=== PATIENT | male | born 1950 | race Caucasian/White ===

== ENCOUNTER 2019-08-19 11:06 | Emergency (ER) | payer MEDICARE, OTHER, SELFPAY ==
[2019-08-19 11:12] VITALS: BP 151/76; PULSE 65; RESP 18; TEMP 36.5; O2SAT 96; BMI 28.7
--- NOTE | 2019-08-19 11:20 | XR_ITS ---
WS: [id number] RIGHT ANKLE: 3 VIEW(S) TECHNIQUE: AP, oblique(s) and lateral. HISTORY: right foot pain COMPARISON: None available. Normal anatomic alignment with no fracture or dislocation. No joint effusion or widening of the ankle mortise. Mild degenerative changes between the distal tibia fibular joint space. No soft tissue abnormality. 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 No fracture.
--- NOTE | 2019-08-19 11:20 | W.ED.EXTPRO ---
HPI - Extremity Problem General: Chief complaint: Extremity Injury, Lower Stated complaint: r leg injury Time Seen by Provider: 08/19/19 11:12 History of Present Illness: HPI Narrative: Patient comes to the ED today with right foot pain. Patient states that last night he went to stand up from his recliner and he felt a sharp pain in his right foot. Location of pain is along the Achilles tendon region of right foot. Pain mostly occurs when he puts weight on foot or any movement of the ankle or foot. Patient says he was laying back in his recliner with his feet up. 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 He also said that he was standing on his toes to reach some areas to pain frequently before feeling right Achilles tendon pain. He has had this exact same pain occur in the past after laying in his recliner. He said the pain lasted for about 4 days and then went away. Associated symptoms: Deny chest pain, fever(s) or rash Review of Systems Const: Denies: fever(s), chills or fatigue Eyes: Denies: change in vision or eye discomfort ENMT: Denies: throat pain, odynophagia, nasal discharge or nasal congestion Card: Denies: chest pain, palpitations, edema, swelling of feet/ankles, dyspnea on exertion or orthopnea Resp: Denies: dyspnea, productive cough or non-productive cough GI: Denies: abdominal pain, nausea, vomiting, diarrhea, constipation or hematochezia : Denies: flank pain, difficulty urinating, dysuria or hematuria Musc: Reports: extremity pain (right ankle area (along the achilles tendon)); Denies: neck pain, back pain or extremity swelling Skin/Breast: Denies: rash or new lesions Neuro: Denies: headache(s), numbness in extremities or weakness in extremities PFS ED PFSH: Social History Smoking and tobacco status: never smoked Physical Exam Const: COMMON NORMALS: no acute distress, patient oriented x3 and alert GENERAL APPEARANCE: cooperative and comfortable HENMT: COMMON NORMALS: normocephalic HEAD & SCALP: normocephalic MOUTH: Normal oral and palatal mucosa present THROAT: posterior oropharynx normal and uvula midline Neck/C-Spine: COMMON NORMALS: supple GENERAL: Yes normal visual inspection Resp: COMMON NORMALS: normal respiratory effort, No retractions, No use of accessory muscles and clear to auscultation bilaterally EFFORT & INSPECTION: Yes able to speak in complete sentences and No respiratory distress AUSCULTATION: clear to auscultation bilaterally Cardio: COMMON NORMALS: regular rate, regular rhythm, S1 normal heart sound present, S2 normal heart sound present, No gallops present (Cardio), No clicks present (Cardio), No murmurs present (Cardio) and Peripheral pulses 2+ throughout RATE: regular rate RHYTHM: regular rhythm HEART SOUNDS: S1 normal heart sound present and S2 normal heart sound present PERIPHERAL PULSES: Peripheral pulses 2+ throughout GI: COMMON NORMALS: Normal to inspection, nondistended, normoactive bowel sounds present, Soft to palpation, non-tender and no masses PALPATION: Yes Soft to palpation : COMMON NORMALS: Yes no CVA tenderness BLADDER/KIDNEY EXAM: Yes no CVA tenderness Back/Pelvis: COMMON NORMALS: no CVA tenderness Extremity: RIGHT LOWER EXTREMITY: Yes foot & digits Right ankle: Yes inspection (Normal and unremarkable. No swelling or erythema.), Yes palpation (Mild tenderness upon palpation around the Achilles tendon.), Yes ROM (Limited due to pain.), Yes neurovascular exam (Fully intact.) and Yes special tests (Chow test negative) Neuro: COMMON NORMALS: patient oriented x3 and moves all extremities SENSORIUM/ORIENTATION: Yes alert Skin: COMMON NORMALS: no rashes or lesions noted GENERAL SKIN EXAM: no rashes or lesions noted and dry skin Course Vital Signs: Vital signs: Vital Signs Temperature 97.7 F 08/19/19 11:12 Pulse Rate 59 L 08/19/19 11:21 Respiratory Rate 18 08/19/19 11:21 Blood Pressure 151/76 08/19/19 11:12 Pulse Oximetry 96 08/19/19 11:21 MDM - Extremity (Nontraumatic) MDM Narrative: Medical decision making narrative: Patient is a 68-year-old male who comes to the ED with right Achilles tendon pain. Patient was recently up on his feet and working a lot before pain set in. Physical exam showed a negative Chow test and some mild tenderness when palpating along the right Achilles tendon. X-ray of right ankle was performed showed no acute findings or fractures. Patient was then given a shot of Toradol and his right ankle was Noe wrapped which helped provide some relief. Diagnosed with Achilles tendonitis of right foot. Patient told to rest, ice and elevate right foot. He was told to take ibuprofen help with pain and inflammation and to follow-up with his PCP in 7 days for reevaluation. Patient understood and agreed with plan. Imaging Data^: Xray Ortho: Attestation: I personally reviewed and interpreted this imaging study as follows: My impression: Right ankle x-ray. No acute findings or fractures. Pending final radiology report. Discharge Plan Discharge Patient Disposition: Home, Self-Care Clinical Impression: Achilles tendonitis Qualifiers: Laterality: right Qualified Code(s): M76.61 - Achilles tendinitis, right leg Condition: Stable Discharge Orders: Discharge Order (Routine); Ordered 08/19/19 Ordered By: Donny Stover Referrals: Obi Munguia, [Primary Care Provider] - Discharge Diet: Regular Discharge Activity: Increase activity as tolerated Patient Instructions: Achilles Tendinitis (ED) Activity Restrictions/Additional Instructions: Follow-up with your PCP in 7 to 10 days for reevaluation. Apply ice, rest and elevate. Use Noe wrap on right ankle to help with symptoms as well. Take up to 600 mg of ibuprofen 3 times a day to help with pain and inflammation. Coding Level of Care Code ED Rub[employer] Worker for Jaxon Reed Exam Comprehensive
[2019-08-19 11:21] VITALS: PULSE 59; RESP 18; O2SAT 96
[2019-08-19] MEDS: ketorolac 30 mg/mL INJ IM (11:56)
[2019-08-19 12:21] VITALS: BP 151/76; PULSE 56; RESP 16; O2SAT 97
== END 2019-08-19 12:15 | disposition home or self-care (01) ==
PROVIDERS: Emergency Provider Physician Assistant; Family Provider Family Medicine; PCP Family Medicine
DX: M76.61 Achilles tendinitis, right leg (principal)
CPT/HCPCS: 12345; 73610; 96372; 99282; 99283; J1885

== ENCOUNTER → 2019-12-23 12:00 | Outpatient (BNVA) | payer MEDICARE, OTHER, SELFPAY | PROVIDERS: Family Provider Family Medicine; PCP Family Medicine; Visit Provider Nurse Practitioner | DX: S99.921A Unspecified injury of right foot, initial encounter (principal); X58.XXXA Exposure to other specified factors, initial encounter; Z68.30 Body mass index [BMI] 30.0-30.9, adult | CPT/HCPCS: 73630 ==

== ENCOUNTER → 2019-12-27 11:53 | Outpatient (BNVA) | payer MEDICARE, OTHER, SELFPAY | PROVIDERS: Family Provider Family Medicine; PCP Family Medicine; Visit Provider Nurse Practitioner Family | DX: Z11.59 Encounter for screening for other viral diseases (principal) | CPT/HCPCS: 87635 ==

== ENCOUNTER 2020-01-03 19:27 | Emergency (ER) | payer MEDICARE, OTHER, SELFPAY ==
--- NOTE | 2020-01-03 20:08 | ED_ITS ---
HPI - COVID General: Chief Complaint: COVID symptoms Stated Complaint: covid+/SOB Time Seen by Provider: 01/03/20 20:04 Source: patient Mode of arrival: ambulatory Limitations: no limitations History of Present Illness: HPI Narrative: Patient comes in for COVID-19 that was diagnosed last Monday. Patient has been ill for approximately 10 days. Patient comes in for evaluation of shortness of breath. Patient appears mildly unwell. Patient appears in no acute distress. MD complaint: known COVID positive COVID 19 common symptoms: positive dyspnea COVID Results: SARS-CoV-2 RNA (RT-PCR) Detected (NOT DETECTED) A 12/27/19 11:53 0 Review of Systems General: Reports: 10 or more systems reviewed and unremarkable except in HPI and below Resp: Reports: dyspnea [facility] ED PFSH: Social History Smoking and tobacco status: never smoked Physical Exam Const: COMMON NORMALS: no acute distress and patient oriented x3 GENERAL APPEARANCE: cooperative HENMT: COMMON NORMALS: normocephalic, TM's normal bilaterally and Normal external nose present HEAD & SCALP: normal to inspection and normocephalic NOSE: Normal external nose present TYMPANIC MEMBRANE: TM's normal bilaterally MOUTH: Normal oral and palatal mucosa present THROAT: posterior oropharynx normal Eye: GENERAL EYE: appearance normal, both eyes and all related structures Neck/C-Spine: COMMON NORMALS: full ROM Lymph: LYMPHATIC: no lymphadenopathy noted Chest: COMMONS NORMALS: normal inspection of the chest Resp: COMMON NORMALS: normal respiratory effort EFFORT & INSPECTION: Yes able to speak in complete sentences Cardio: COMMON NORMALS: regular rate and regular rhythm RATE: regular rate RHYTHM: regular rhythm GI: COMMON NORMALS: non-tender Back/Pelvis: COMMON NORMALS: thoracic and lumbar spine normal to inspection Extremity: COMMON NORMALS: normal to inspection Neuro: COMMON NORMALS: patient oriented x3 and moves all extremities Psych: COMMON NORMALS: mental status grossly normal and cooperative Skin: COMMON NORMALS: no rashes or lesions noted GENERAL SKIN EXAM: no rashes or lesions noted Course Vital Signs: Vital signs: Vital Signs Temperature 98.5 F 01/03/20 20:14 Pulse Rate 62 01/03/20 20:14 Respiratory Rate 16 01/03/20 20:14 Blood Pressure 142/97 01/03/20 20:14 Pulse Oximetry 95 01/03/20 20:14 MDM - COVID MDM Narrative Medical decision making narrative: Patient comes in for evaluation of COVID-19 symptoms. Patient has been tested positive since last Monday. Patient has been ill for 10 days. Exam was unremarkable. Differential diagnosis includes COVID- 19, pneumonia, respiratory failure. At this time no signs of significant illnesses noted. Reviewed pulse oximetry use and monitoring at home. Discussed usual outcomes and recommendations for further treatment and evaluation. Patient reported understanding. Differential Diagnosis Differential diagnosis: Likely COVID 19 Lab Data COVID Results: SARS-CoV-2 RNA (RT-PCR) Detected (NOT DETECTED) A 12/27/19 11:53 12/27/19 Discharge Plan Discharge Patient Disposition: Home Clinical Impression: COVID-19 Condition: Stable Prescriptions: No Action hydrochlorothiazide 12.5 mg tablet 12.5 mg PO DAILY RF: 0 Discharge Orders: Discharge Order (Routine); Ordered 01/03/20 Ordered By: Mark Alarcon Referrals: Obi Munguia DO [Primary Care Provider] - Discharge Diet: Usual diet Discharge Activity: Increase activity as tolerated Activity Restrictions/Additional Instructions: Home and rest. Acetaminophen and ibuprofen for pain and discomfort. Drink plenty of fluids. Stay well-hydrated. Monitor oxygen per pulse ox every 3 hours as needed for evaluation of oxygen saturation. If oxygen saturation is below 90% return to the ER for further evaluation and treatment. Return to the ER as needed for concern. Coding Level of Care Code ED Systems Integration Manager for Jaxon Fwd Exam Comprehensive
[2020-01-03 20:14] VITALS: BP 142/97; PULSE 62; RESP 16; TEMP 36.9; O2SAT 95; BMI 27.2
[2020-01-03 20:59] VITALS: O2SAT 95
== END 2020-01-03 21:15 | disposition home or self-care (01) ==
PROVIDERS: Emergency Provider Nurse Practitioner Family; PCP Family Medicine
DX: U07.1 COVID-19 (principal)
CPT/HCPCS: 12345; 99282

== ENCOUNTER 2020-11-20 08:29 | Emergency (ER) | payer MEDICARE, OTHER, SELFPAY ==
[2020-11-20 09:09] VITALS: BP 126/81; PULSE 63; RESP 18; TEMP 36.8; O2SAT 97; BMI 29.4
--- NOTE | 2020-11-20 09:41 | W.ED.GENADLT ---
HPI - General Adult General: Chief complaint: Skin/Abscess/Foreign Body Stated complaint: bump on R side of neck Time Seen by Provider: 11/20/20 08:49 History of Present Illness: HPI narrative: Patient is a 69-year-old male who presents the emergency room with complaints of a bump on the right side of his neck. Patient noticed a around movable object on the right side of his neck. Patient denies any other lesions on the side of the neck. Denies any pain, fever/chills, difficulty swallowing, or any discomfort with range of neck. No constitutional symptoms, IVDU, DM, or hx of cancer. Onset:5 days ago Duration:5 days Location:home Severity:mild Review of Systems Narrative: Constitutional: No fever, no chills. HEENT: No vision changes, +R neck lump CV: No chest pain, no palpitations PULM: no cough, no dyspnea. GI: No abdominal pain, no N/V/D. : No dysuria MSKEL: No muscle pain SKIN: No new rashes, no lesions. NEURO: No headache, no focal weakness. HEME: No visible bruises PSYCH: Normal mood Physical Exam Narrative: EXAM NARRATIVE: Head: Atraumatic Eyes: PERRL, conjunctiva without injection ENT: Mucous membrane moist NECK: Supple, ROM intact, +mobile/non-tendern/non erythematous lesion over R lateral neck that is not warm to touch LUNGS: LCTAB, no crackles/rhonchi CV: RRR ABDOMEN: Soft, nontender in all quadrants EXTREMITY: Normal ROM SKIN: No rash or erythema NEURO: Awake and alert, no focal motor deficits PSYCH: Normal mood and affect Course Vital Signs: Vital signs: Vital Signs Temperature 98.2 F 11/20/20 09:09 Pulse Rate 63 11/20/20 09:09 Respiratory Rate 18 11/20/20 09:09 Blood Pressure 126/81 11/20/20 09:09 Pulse Oximetry 97 11/20/20 09:09 MDM - General Adult MDM Narrative: Medical decision making narrative: 69-year-old male presents the emergency room with right-sided neck lump. That ultrasound showed anechoic collection over the area. There is no signs of cobblestoning to suggest cellulitis or hetergenous collection/increased hyperemia to suggest abscess I attempted to aspirate into the anechoic space sterilely however there is no return of any drainage. Patients me that there are springs of white substance coming out of the lesion yesterday night, which makes me suspect possible lipoma. Given the anatomical location of the lesion, decision was made not to excise it too high vascularity of the surrounding anatomy. Disposition: Discharge. Patient is given follow with PCP in 48 hours for reevaluation of symptoms. She is given return precautions for any worsening pain, fever/chills, increased drainage, fever, difficulty swallowing or speaking, or any new concerning complaints Discharge Plan Discharge Patient Disposition: Home Clinical Impression: Lipoma Condition: Stable Prescriptions: No Action aspirin [Adult Aspirin Regimen] 81 mg tablet,delayed release (DR/EC) 81 mg PO QAM RF: 0 Vitamin C 500 mg Tablet 500 mg PO EVERY OTHER DAY RF: 0 Coconut Oil See Rx Instructions .ROUTE .COMPLEX RF: 0 hydrochlorothiazide 25 mg tablet 12.5 mg PO QAM RF: 0 fiber Powder See Rx Instructions .ROUTE .COMPLEX RF: 0 Fish Oil 1 cap PO EVERY OTHER DAY RF: 0 Vitamin D3 1 cap PO EVERY OTHER DAY RF: 0 garlic 1 cap PO EVERY OTHER DAY RF: 0 vitamin E 1 cap PO EVERY OTHER DAY RF: 0 zinc 1 cap PO EVERY OTHER DAY RF: 0 Discharge Orders: Discharge ED (Routine); Ordered 11/20/20 Ordered By: Lidia Winston Referrals: Obi Munguia DO [Primary Care Provider] - Discharge Diet: Advance as tolerated Discharge Activity: Resume usual activity Patient Instructions: Lipoma (ED) Activity Restrictions/Additional Instructions: Please follow up with your primary care doctor for removal and excision of the lesion Coding Level of Care Code ED [employer] [facility] Director for Jaxon Reed
== END 2020-11-20 09:43 | disposition home or self-care (01) ==
PROVIDERS: Emergency Provider Emergency Medicine; PCP Family Medicine
DX: D17.0 Benign lipomatous neoplasm of skin and subcutaneous tissue of head, face and neck (principal)
CPT/HCPCS: 99281

== ENCOUNTER 2020-11-23 08:09 | Emergency (ER) | payer MEDICARE, OTHER, SELFPAY ==
[2020-11-23 08:32] VITALS: BP 139/104; PULSE 62; RESP 14; TEMP 36.5; O2SAT 96; BMI 29.4
[2020-11-23 08:41] VITALS: BP 139/104; PULSE 63; O2SAT 95
--- NOTE | 2020-11-23 09:09 | W.ED.SKABFB ---
HPI - Skin/Abscess/Foreign Bdy General: Chief complaint: Skin/Abscess/Foreign Body Stated complaint: LUMP/R SIDE FACE,VERY SORE:SEEN HERE FRI FOR SAME Time Seen by Provider: 11/23/20 08:18 History of Present Illness: HPI narrative: Area right-sided neck is very tender now again more red and swollen. MD complaint: abscess/boil Onset (ago): day(s) Tetanus up to date: yes Location: neck Severity: mild Quality: aching Pain Consistency: constant Relieving factors: none Exacerbating factors: movement Associated symptoms: Reports no associated symptoms; Deny chills or fever(s) Review of Systems Const: Denies: fever(s) or chills Skin/Breast: Reports: erythema, skin tenderness and skin swelling (This area was originally a months ago little pea-sized area that he started) Psych: Denies: anxiety or depression Physical Exam Const: COMMON NORMALS: no acute distress GENERAL APPEARANCE: cooperative Lymph: LYMPHATIC: no lymphadenopathy noted Skin: OTHER: Right-sided neck, area that is red has 3 or 4 white spots in an obvious area where her appendage been poked in it. I prepped area sterilely opened up a #11 scalpel and removed a large sebaceous cyst that was full of cottage cheese like substance Procedures Abscess I/D Site: neck Side (if applicable): right Local Anesthetic: lidocaine 1% and with epi Amount of anesthesia used (mL): 1 Irrigation: Yes Packing used?: none Course Vital Signs: Vital signs: Vital Signs Temperature 97.7 F 11/23/20 08:32 Pulse Rate 63 11/23/20 08:41 Respiratory Rate 14 11/23/20 08:32 Blood Pressure 139/104 11/23/20 08:41 Pulse Oximetry 95 11/23/20 08:41 MDM - Skin/Abscess/Foreign Bdy MDM Narrative: Medical decision making narrative: Sebaceous cyst removed right side of neck. Cyst sac did not come out in 1 piece it was multiple pieces. Not large enough to need packing. Discharge Plan Discharge Patient Disposition: Home Clinical Impression: Sebaceous cyst, Encounter for incision and drainage procedure Condition: Stable Prescriptions: No Action aspirin [Adult Aspirin Regimen] 81 mg tablet,delayed release (DR/EC) 81 mg PO QAM RF: 0 Vitamin C 500 mg Tablet 500 mg PO EVERY OTHER DAY RF: 0 Coconut Oil See Rx Instructions .ROUTE .COMPLEX RF: 0 hydrochlorothiazide 25 mg tablet 12.5 mg PO QAM RF: 0 fiber Powder See Rx Instructions .ROUTE .COMPLEX RF: 0 Fish Oil 1 cap PO EVERY OTHER DAY RF: 0 Vitamin D3 1 cap PO EVERY OTHER DAY RF: 0 garlic 1 cap PO EVERY OTHER DAY RF: 0 vitamin E 1 cap PO EVERY OTHER DAY RF: 0 zinc 1 cap PO EVERY OTHER DAY RF: 0 Discharge Orders: Discharge ED (Routine); Ordered 11/23/20 Ordered By: Kaushik Draper Referrals: Obi Munguia DO [Primary Care Provider] - Discharge Diet: Usual diet Discharge Activity: Resume usual activity Patient Instructions: Abscess Incision and Drainage (ED) Activity Restrictions/Additional Instructions: Keep area clean with soap and water. Keep Band-Aid over area. Follow-up your family medical provider if any problems ensue post procedure. Watch for signs symptoms of infection. Coding Level of Care Code ED Instructor Of Sociology for Jaxon Reed
== END 2020-11-23 09:29 | disposition home or self-care (01) ==
PROVIDERS: Emergency Provider Nurse Practitioner Family; PCP Family Medicine
DX: L72.3 Sebaceous cyst (principal); Z79.82 Long term (current) use of aspirin
CPT/HCPCS: 10060; 87070; 99282

== ENCOUNTER 2021-01-18 12:12 | Outpatient (CLI) | payer OTHER, SELFPAY ==
--- NOTE | 2021-01-18 12:16 | MR_ITS ---
WS: [id number] MRI BRAIN WITHOUT CONTRAST HISTORY: CHRONIC HEADACHES COMPARISON: None available. TECHNIQUE: Diffusion imaging, multiplanar T1, T2 and FLAIR imaging obtained. Patient refused IV contr ast. No evidence for acute infarct or hemorrhage. Krishna-white matter differentiation is normal. Mild atrophy. There are very few scattered T2 and FLAIR signal hyperintensities in the subcortical wh ite matter of the frontal lobes. No prior infarct. Ventricles and extra-axial spaces are normal. No inferior displacement of cerebellar tonsils. The sella turcica and pituitary gland are unremarkabl e. Dural venous sinuses and [place] of [place] demonstrate no abnormality on this unenhanced studies. Paranasal sinuses: Mucoperiosteal thickening throughout the LEFT frontal sinus extending into the fro ntal ethmoid recess. No air-fluid levels. Mastoid air cells: Normal. Calvarium and scalp: Intact. MR/MR head wo con* [id number] IMPRESSION: 1. No acute infarct. 2. Mild atrophy and minimal bifrontal subcortical white matter small vessel is chemic change. 3. LEFT frontal sinus disease.
== END 2021-01-18 12:13 | disposition home or self-care (01) ==
LOC: RADSHAW 12:13
PROVIDERS: PCP Family Medicine; Visit Provider Emergency Medicine Emergency Medical Services
DX: R51.9 Headache, unspecified (principal); G89.29 Other chronic pain; G31.9 Degenerative disease of nervous system, unspecified
CPT/HCPCS: 70551

== ENCOUNTER 2021-02-03 10:27 | Outpatient (CLI) | payer OTHER, SELFPAY ==
--- NOTE | 2021-02-03 10:36 | XR_ITS ---
WS: [id number] FOOT RIGHT TECHNIQUE: 3 views of the right foot CLINICAL INFORMATION: TOE PAIN, RIGHT COMPARISON: December 23, 2019 FINDINGS: Normal anatomic alignment. 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 Normal metatarsals. Normal tarsal bones. No acute fractures. Tiny plantar calcaneal spur. Tiny Achilles insertion enthesophyte. XR/XR foot RT min 3V* [id number] IMPRESSION: Degenerative narrowing involving the fourth PIP and DIP joints. No acute fractu res.
== END 2021-02-03 10:28 | disposition home or self-care (01) ==
PROVIDERS: PCP Family Medicine; Visit Provider Clinical Nurse Specialist Adult Health
DX: M79.674 Pain in right toe(s) (principal)
CPT/HCPCS: 73630

== ENCOUNTER 2021-03-25 08:08 | Outpatient (CLI) | payer MEDICARE, OTHER, SELFPAY ==
--- NOTE | 2021-03-25 08:33 | ECG_ITS ---
[facility] Test Date: 2021-03-25 Pat Name: Ming Fried Department: Room: Gender: Male Urologic Surgeon: : 1950 Requested By: Juan J Child Order Number: [id number] Cesar MD: Cristi Carrillo M.D. Measurements Intervals Means Rate: 54 P: TN: QRS: 8 QRSD: 89 T: 84 QT: 427 QTc: 408 Interpretive Statements SUPRAVENTRICULAR BRADYCARDIA NONSPECIFIC T-WAVE ABNORMALITY Compared to ECG 12/30/2014 13:13:42 T-wave abnormality now present Sinus bradycardia no longer present Electronically Signed On 03-25-2021 22:07:08 POLICE WORKER by Cristi Carrillo M.D. [email or web address] beachwood medical centerRed Lozenge, inc./store/[id number] f
== END 2021-03-25 08:09 | disposition home or self-care (01) ==
LOC: RT 08:12
PROVIDERS: PCP Family Medicine; Visit Provider Specialist
DX: J34.2 Deviated nasal septum (principal); J34.3 Hypertrophy of nasal turbinates; R00.1 Bradycardia, unspecified
CPT/HCPCS: 93005

== ENCOUNTER → 2021-05-18 10:23 | Outpatient (BNVA) | payer OTHER, SELFPAY | PROVIDERS: PCP Family Medicine; Visit Provider Specialist | DX: G43.711 Chronic migraine without aura, intractable, with status migrainosus (principal) | CPT/HCPCS: 99204 ==

== ENCOUNTER → 2021-06-21 08:04 | Outpatient (BNVA) | payer OTHER, SELFPAY | PROVIDERS: PCP Family Medicine; Visit Provider Specialist | DX: G43.711 Chronic migraine without aura, intractable, with status migrainosus (principal); G47.33 Obstructive sleep apnea (adult) (pediatric); Z91.19 Patient's noncompliance with other medical treatment and regimen | CPT/HCPCS: 99213; 99214 ==

== ENCOUNTER 2021-09-08 11:00 | Outpatient (CLI) | payer OTHER, SELFPAY ==
--- NOTE | 2021-09-08 11:15 | USCV_ITS ---
Ming Fried Age: 70 Gender: M : 1950 Exam Date: 09/08/2021 11:33 Ordering Phys: Abdirashid Braswell DO Technologist: MARYA Exam Location: [facility]_ Indication: DOUBLE/BLURRED VISION Risk Factors: Previous Vascular Surgery: Right Brachial BP: / Left Brachial BP: / Right Left Velocity (cm/s) Spectral Plaque Velocity (cm/s) Spectral Plaque Syst/Diast Broadening Syst/Diast Broadening 102.50/33.10 Prox CCA 102.50/ 25.00 82.70/ 26.50 Mid CCA 0.00 / 26.30 67.50/ 20.60 Distal CCA 79.80 / 28.60 71.10/ 22.20 Prox ICA 46.20 / 15.60 49.40/ 16.50 Mid ICA 51.70 / 20.70 54.10/ 23.50 Distal ICA 56.90 / 22.40 67.20 ECA 81.40 0.69 ICA/CCA 0.55 Antegrade Vertebral Antegrade 22.90/ 10.60 cm/s 43.20/ 19.90 cm/s Tri Subclavian Tri 218.8 74.90 0 FINDINGS Comparison: none available. No significant elevation of systolic or diastolic velocities. Waveforms are normal. Mixture of calcified and noncalcified plaque in the bifurcations. CONCLUSIONS Bilateral ICA stenosis less than 50%. Mild carotid atherosclerosis. Dr. Jessica Urrutia DO (Electronically Signed) Final Date: 08 September 2021 12:33 S
== END 2021-09-08 11:01 | disposition home or self-care (01) ==
LOC: RAD 11:05
PROVIDERS: PCP Family Medicine; Visit Provider Emergency Medicine Emergency Medical Services
DX: I65.23 Occlusion and stenosis of bilateral carotid arteries (principal)
CPT/HCPCS: 93880

== ENCOUNTER → 2021-11-09 14:34 | Outpatient (BNVA) | payer OTHER, SELFPAY | PROVIDERS: PCP Family Medicine; Visit Provider Specialist | DX: G31.84 Mild cognitive impairment of uncertain or unknown etiology (principal); G43.711 Chronic migraine without aura, intractable, with status migrainosus; F07.81 Postconcussional syndrome | CPT/HCPCS: 96116; 99214 ==

== ENCOUNTER → 2021-12-08 09:23 | Outpatient (BNVA) | payer OTHER, SELFPAY | PROVIDERS: PCP Family Medicine; Referring Provider Emergency Medicine Emergency Medical Services; Visit Provider Orthopaedic Surgery | DX: M25.552 Pain in left hip (principal) | CPT/HCPCS: 99203 ==

== ENCOUNTER 2022-02-07 11:27 | Outpatient (CLI) | payer OTHER, SELFPAY ==
--- NOTE | 2022-02-07 11:45 | MR_ITS ---
WS: [id number] MRI LEFT HIP without CONTRAST. COMPARISON: Radiographs 11/19/2021 Multiplanar, multisequence imaging is performed without contrast. There is a small amount of increased T2 signal in the gluteus medius muscle overlying the greater tro chanter. Small amount of increased signal in the gluteus medius tendon. There is a very small amount of fluid in the greater trochanteric bursa. There is no fracture or marrow edema. Symmetric appearance of the hips. No labral tear is identified. SI joints are normal. No effusion or erosions. MR/MR hip LT wo con* [id number] IMPRESSION: 1. Mild LEFT greater trochanteric bursitis. 2. Mild tendinopathy in the LEFT gluteus medius tendon.
== END 2022-02-07 11:28 | disposition home or self-care (01) ==
LOC: RAD 11:27
PROVIDERS: PCP Family Medicine; Visit Provider Orthopaedic Surgery
DX: M70.72 Other bursitis of hip, left hip
CPT/HCPCS: 73721

== ENCOUNTER → 2022-02-08 14:23 | Outpatient (BNVA) | payer OTHER, SELFPAY | PROVIDERS: PCP Emergency Medicine Emergency Medical Services; Visit Provider Specialist | DX: G43.711 Chronic migraine without aura, intractable, with status migrainosus (principal); G31.84 Mild cognitive impairment of uncertain or unknown etiology | CPT/HCPCS: 99214 ==

== ENCOUNTER → 2022-03-10 10:54 | Outpatient (BNVA) | payer OTHER, SELFPAY | PROVIDERS: PCP Emergency Medicine Emergency Medical Services; Visit Provider Specialist | DX: G43.711 Chronic migraine without aura, intractable, with status migrainosus (principal); R41.89 Other symptoms and signs involving cognitive functions and awareness; R20.0 Anesthesia of skin; R20.2 Paresthesia of skin; T59.891S Toxic effect of other specified gases, fumes and vapors, accidental (unintentional), sequela; H91.8X9 Other specified hearing loss, unspecified ear | CPT/HCPCS: 99215 ==

== ENCOUNTER → 2022-06-21 08:16 | Outpatient (BNVA) | payer OTHER, SELFPAY | PROVIDERS: PCP Emergency Medicine Emergency Medical Services; Referring Provider Specialist; Visit Provider Specialist | DX: R41.89 Other symptoms and signs involving cognitive functions and awareness (principal); T59.9 Toxic effect of unspecified gases, fumes and vapors; X58.XXXS Exposure to other specified factors, sequela; G43.711 Chronic migraine without aura, intractable, with status migrainosus | CPT/HCPCS: 99213 ==

== ENCOUNTER 2022-07-11 18:33 | Emergency (ER) | payer OTHER, SELFPAY ==
[2022-07-11 18:41] VITALS: BP 148/85; PULSE 63; RESP 18; O2SAT 95; BMI 29.4
--- NOTE | 2022-07-11 18:52 | ED_ITS ---
HPI - Eye Problem General: Chief complaint: Eye Problems Stated complaint: Rt Saw Dust in Eye Time Seen by Provider: 07/11/22 18:52 History of Present Illness: 71-year-old male patient comes in today for complaints of warm body in the right eye. Patient was working around wood and got some sawdust in his right eye. Patient continues to feel there is something in his eye. Patient appears nontoxic. Patient appears in mild to moderate discomfort. Associated symptoms: Denies fever(s) or neck pain Review of Systems General: Reports: 10 or more systems reviewed and unremarkable except in HPI and below Const: Denies: fever(s) Eyes: Reports: eye discomfort ENMT: Denies: throat pain Card: Denies: chest pain Resp: Denies: dyspnea Musc: Denies: neck pain Skin/Breast: Denies: rash PFSH ED PFSH: Social History Smoking and tobacco status: never smoked Alcohol intake: never Physical Exam Const: COMMON NORMALS: alert HENMT: HEAD & SCALP: normal to inspection Eye: COMMON NORMALS: conjunctivae normal PERIORBITAL: periorbital findings normal CONJUNCTIVA: Yes conjunctivae normal CORNEA: Yes fluorescein used (Small abrasion 1 mm 9:00 edge of iris) Neck/C-Spine: COMMON NORMALS: full ROM Resp: COMMON NORMALS: normal respiratory effort Cardio: COMMON NORMALS: regular rate and regular rhythm RATE: regular rate RHYTHM: regular rhythm GI: COMMON NORMALS: Soft to palpation PALPATION: Yes Soft to palpation Neuro: SENSORIUM/ORIENTATION: Yes alert Skin: COMMON NORMALS: no rashes or lesions noted GENERAL SKIN EXAM: no rashes or lesions noted Procedures FB Removal Eye Location: eye (R) Topical anesthetic used: tetracaine Foreign body: wood Evidence of corneal penetration: No Technique: irrigation and needle Procedure performed under: direct visualization with magnification Post-procedure medication: ophthalmic antibiotic Patient tolerated procedure: well and no complications Course Vital Signs: Vital signs: Vital Signs Pulse Rate 63 07/11/22 18:41 Respiratory Rate 18 07/11/22 18:41 Blood Pressure 148/85 07/11/22 18:41 Pulse Oximetry 95 07/11/22 18:41 Oxygen Delivery Me thod Room Air 07/11/22 18:41 MDM - Eye Problem Medical Decision Making 71-year-old male patient comes in today with foreign body in the right eye. On exam under direct visualization it was noted that patient had a small foreign body that appeared to be a piece of sawdust embedded in the cornea at the 9 o'clock position of the right eye at the edge of iris. Funduscopy exam noted a clear vitreous with visualization of vessels. Vital signs are normal. D ifferential diagnosis includes corneal penetration, corneal foreign body, corneal abrasion. Under topical anesthetic to foreign body was removed successfully and patient tolerated well. Fluorescein stain was then used to evaluate the eye further and only a small abrasion about 1 mm was noted in the area of foreign body. Patient was placed on Maxitrol eyedrops 1 drop 4 times a day for the next 7 days for further treatment. Patient was recommended to follow-up with primary care or eye transitional care manager in 3 days for reevaluation. Patient had relief of symptoms at discharge and reported understanding of care plan and need for follow-up or return to the ER. Discharge Plan Discharge Patient Disposition: Home Clinical Impression: Foreign body in eye Qualifiers: Encounter type: initial encounter Laterality: right Qualified Code(s): T15.91XA - Foreign body on external eye, part unspecified, right eye, initial encounter Condition: Stable Prescriptions: No Action aspirin [Adult Aspirin Regimen] 81 mg tablet,delayed release (DR/EC) 81 mg PO QAM aspirin 81 mg tablet,chewable 81 mg PO DAILY propranolol 20 mg tablet 20 mg PO BID Qty: 60 3RF Rx Instructions: Take 2 tabs twice daily. hydrochlorothiazide 12.5 mg tablet 12.5 mg PO DAILY hydrochlorothiazide 25 mg tablet See Rx Instructions .ROUTE .COMPLEX Qty: 45 3RF Dose Instruction: Take 1/2 (one-half) tablet by mouth once daily Rx Instructions: Take 1/2 (one-half) tablet by mouth once daily Emgality Pen 120 mg/mL pen injector 120 mg SUBCUT ONCE 30 Days Qty: 30 6RF Rx Instructions: inject once monthly Emgality Pen 120 mg/mL pen injector 240 mg SUBCUT ONCE Qty: 1 0RF Vitamin C 500 mg Tablet 500 mg PO EVERY OTHER DAY Coconut Oil See Rx Instructions .ROUTE .COMPLEX Rx Instructions: one tablespoonful po qam fiber Powder See Rx Instructions .ROUTE .COMPLEX Rx Instructions: one tablespoonful po qam Fish Oil 1 cap PO EVERY OTHER DAY Vitamin D3 1 cap PO EVERY OTHER DAY garlic 1 cap PO EVERY OTHER DAY vitamin E 1 cap PO EVERY OTHER DAY zinc 1 cap PO EVERY OTHER DAY Discharge Orders: Discharge ED (Routine); Ordered 07/11/22 Ordered By: Mark Alarcon Referrals: Sandee Fair DO [Primary Care Provider] - Discharge Diet: Usual diet Discharge Activity: Increase activity as tolerated Patient Instructions: Corneal Abrasion (ED) Activity Restrictions/Additional Instructions: Use antibiotic eyedrops 1 drop to the affected eye 4 times a day for the next 7 days. Follow-up with primary care or eye transitional care manager in 3 days for recheck. Return to ED for worsening symptoms or new concerns. 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
[2022-07-11] MEDS: fluorescein 1 mg Strip EYE-RIGHT (19:31)
[2022-07-11] MEDS: eye irrigation 30 mL Btl EYE-RIGHT (19:31)
[2022-07-11] MEDS: neomycin-poly-dex Op 5 mL Btl 2 DROP EYE-RIGHT (19:32)
[2022-07-11] MEDS: tetracaine 0.5% Op Soln 4 mL Btl 1 DROP EYE-RIGHT (19:32)
== END 2022-07-11 19:50 | disposition home or self-care (01) ==
PROVIDERS: Emergency Provider Nurse Practitioner Family; PCP Family Medicine
DX: T15.91XA Foreign body on external eye, part unspecified, right eye, initial encounter (principal); X58.XXXA Exposure to other specified factors, initial encounter; Z79.82 Long term (current) use of aspirin
CPT/HCPCS: 65205; 99283

== ENCOUNTER 2022-10-12 08:48 | Emergency (ER) | payer OTHER, SELFPAY ==
[2022-10-12 08:57] VITALS: BP 149/89; PULSE 62; RESP 18; O2SAT 95
[2022-10-12] MEDS: tizanidine 4 mg Tablet PO (09:18)
[2022-10-12] MEDS: ketorolac 30 mg/mL INJ IM (09:19)
[2022-10-12] MEDS: dexamethasone 10 mg/mL INJ IM (09:19)
[2022-10-12 09:20] VITALS: BP 149/89; PULSE 56; RESP 18; O2SAT 97
--- NOTE | 2022-10-12 09:52 | ED_ITS ---
HPI - Back Pain/Injury General: Chief Complaint: Back Pain/Injury Stated Complaint: abd pain Time Seen by Provider: 10/12/22 08:49 Source: patient Mode of arrival: ambulatory History of Present Illness: 69-year-old male presents emergency complaining of low back pain for last 3 weeks he cannot recall a precipitating event he has no pain rating to the lower extremities no saddle paresthesias no difficulties fecal incontinence or urinary retention. He has not had any fever sweats chills vomiting or diarrhea. The stated complaint on the triage Paes says abdominal pain however when I talked to the patient he denies any abdominal pain. He has not had any dysuria urgency or frequency no vomiting or diarrhea. He has not had any previous major back surgeries or evaluations. He has intermittently had back pain. Its worse when he is sitting walking and changing positions better if he remains lying down. He has not seen his primary care physician for this he has been taking aspirin at home with no significant improvement. MD elicited complaint: back pain Pertinent past history: prior back pain Onset (ago): week(s) (3) Timing: constant and progressively worsening Severity: moderate Quality: sharp Location: lumbar spine Radiation: none Exacerbating factors: sitting upright, walking and other (Change in position) Relieving factors: supine Associated symptoms: Deny abdominal pain, arthralgias, chills, change in bowel habits, difficulty walking, dysuria, fatigue, fecal incontinence, fever(s), hematuria, myalgias, nausea, numbness, syncope, tingling/numbness/burning, urinary frequency, urinary urgency, vomiting or weakness Review of Systems Const: Denies: fever(s), chills or fatigue Card: Denies: chest pain, palpitations, irregular heart rhythm or syncope Resp: Denies: dyspnea, productive cough or non-productive cough GI: Denies: abdominal pain, nausea, vomiting, fecal incontinence or change in bowel habits : Denies: dysuria, urinary urgency or hematuria Skin/Breast: Denies: rash or pruritus Neuro: Denies: difficulty walking PFSH ED PFSH: Social History Smoking and tobacco status: never smoked Alcohol intake: never Substance/Drug Use: never Physical Exam Const: GENERAL APPEARANCE: cooperative and comfortable ORIENTATION/CONSCIOUSNESS: Yes awake, Yes oriented to person, Yes oriented to place and Yes oriented to time HENMT: COMMON NORMALS: normocephalic, atraumatic and hearing grossly normal bilaterally HEAD & SCALP: normocephalic and atraumatic Resp: COMMON NORMALS: normal respiratory effort, No retractions, No use of accessory muscles and clear to auscultation bilaterally AUSCULTATION: clear to auscultation bilaterally Cardio: COMMON NORMALS: regular rate, regular rhythm and No murmurs present (Cardio) RATE: regular rate RHYTHM: regular rhythm GI: COMMON NORMALS: Soft to palpation and No hepatosplenomegaly present AUSCULTATION: Yes normoactive bowel sounds PALPATION: Yes Soft to palpation, No Tenderness to palpation present (GI), No Guarding due to palpation present (GI) and Yes No hepatosplenomegaly present Extremity: COMMON NORMALS: normal to inspection, capillary refill normal, no clubbing, cyanosis or edema, no calf tenderness and no pedal edema Neuro: SENSORIUM/ORIENTATION: Yes oriented to person, Yes oriented to place and Yes oriented to time OTHER: Straight leg raising negative dorsal plantarflexion 5 of 5 EHL 5 of 5 sensation lower extremities normal Skin: COMMON NORMALS: no rashes or lesions noted GENERAL SKIN EXAM: no rashes or lesions noted Course Vital Signs: Vital signs: Vital Signs Pulse Rate 62 10/12/22 10:50 Respiratory Rate 18 10/12/22 10:50 Blood Pressure 149/89 10/12/22 09:20 Pulse Oximetry 99 10/12/22 10:50 Oxygen Delivery Me thod Room Air 10/12/22 09:20 MDM - Back Pain/Injury Medical Decision Making Symptoms improved after medications. He has no abdominal pain either by report or by exam. Focused on his complaint of low back pain has had this for 3 weeks he has improved with her medications we will discharge him home with sending di clofenac steroid taper follow-up with his primary care doctor for referral to PT or consideration of advanced imaging if does not improve Discharge Plan Discharge Patient Disposition: Home Clinical Impression: Strain of lumbar region Condition: Stable Prescriptions: New tizanidine 4 mg tablet 4 mg PO Q6H PRN (Reason: muscle spasticity) Qty: 20 0RF Rx Instructions: do not exceed 3 doses per 24 hrs prednisone 20 mg tablet 20 mg PO TID Qty: 15 0RF Rx Instructions: 1 p.o. 3 times daily x3 days, 1 p.o. twice daily x2 days, 1 p.o. daily x2 days diclofenac sodium 75 mg tablet,delayed release (DR/EC) 75 mg PO Q12H PRN (Reason: pain) Qty: 20 0RF No Action aspirin [Adult Aspirin Regimen] 81 mg tablet,delayed release (DR/EC) 81 mg PO QAM aspirin 81 mg tablet,chewable 81 mg PO DAILY propranolol 20 mg tablet 20 mg PO BID Qty: 60 3RF Rx Instructions: Take 2 tabs twice daily. hydrochlorothiazide 12.5 mg tablet 12.5 mg PO DAILY hydrochlorothiazide 25 mg tablet See Rx Instructions .ROUTE .COMPLEX Qty: 45 3RF Dose Instruction: Take 1/2 (one-half) tablet by mouth once daily Rx Instructions: Take 1/2 (one-half) tablet by mouth once daily Emgality Pen 120 mg/mL pen injector 120 mg SUBCUT ONCE 30 Days Qty: 30 6RF Rx Instructions: inject once monthly Emgality Pen 120 mg/mL pen injector 240 mg SUBCUT ONCE Qty: 1 0RF Vitamin C 500 mg Tablet 500 mg PO EVERY OTHER DAY Coconut Oil See Rx Instructions .ROUTE .COMPLEX Rx Instructions: one tablespoonful po qam fiber Powder See Rx Instructions .ROUTE .COMPLEX Rx Instructions: one tablespoonful po qam Fish Oil 1 cap PO EVERY OTHER DAY Vitamin D3 1 cap PO EVERY OTHER DAY garlic 1 cap PO EVERY OTHER DAY vitamin E 1 cap PO EVERY OTHER DAY zinc 1 cap PO EVERY OTHER DAY Discharge Orders: Discharge ED (Routine); Ordered 10/12/22 Ordered By: Jason Rosas Referrals: Sandee Fair DO [Primary Care Provider] - Discharge Diet: Usual diet Discharge Activity: Increase activity as tolerated Patient Instructions: Acute Low Back Pain (ED), Opioid Safety, Pain Management Coding Level of Care Code ED 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
[2022-10-12] MEDS: morphine 4 mg/mL SDV 1 mL IVP (09:54)
[2022-10-12 10:50] VITALS: PULSE 62; RESP 18; O2SAT 99
== END 2022-10-12 10:51 | disposition home or self-care (01) ==
PROVIDERS: Emergency Provider Family Medicine; PCP Family Medicine
DX: S39.012A Strain of muscle, fascia and tendon of lower back, initial encounter (principal); Z79.82 Long term (current) use of aspirin; X58.XXXA Exposure to other specified factors, initial encounter
CPT/HCPCS: 96372; 96374; 99284; J1100; J1885; J2270

== ENCOUNTER 2022-11-07 14:42 | Outpatient (CLI) | payer OTHER, SELFPAY ==
--- NOTE | 2022-11-07 14:50 | MR_ITS ---
WS: [id number] MRI LUMBAR SPINE NONCONTRAST TECHNIQUE: Sagittal T1, T2 and STIR imaging. Axial T1 and T2 imaging. CLINICAL INFORMATION: LOW BACK PAIN COMPARISON: None. FINDINGS: Mild lumbar curve. No acute compression. Chronic spondylolysis L5-S1. No significant anterolisthesis. Edema within the L4-L5 and L5-S1 facets. L1-L2: Mild facet arthropathy. Spinal canal and foramen are patent. L2-L3: Mild annular bulging. Mild facet arthropathy. Spinal canal and foramen are patent. L3-L4: Mild annular bulging. Slight retrolisthesis. Mild bilateral foraminal narrowing. Mild facet ar thropathy. L4-L5: Mild annular bulging. Moderate arthropathy. Slight retrolisthesis. Moderate facet arthropathy. Mild left foraminal narrowing. L5-S1: No significant disc bulging. Moderate facet arthropathy. Spinal canal and foramen are patent. Visualized pelvic bony structures: Normal. Paravertebral soft tissues: Normal. Small right renal cyst. IMPRESSION: 1. Mild lumbar curve. No acute compression. No high-grade central canal stenosis. 2. Chronic spondylolysis L5-S1. No significant anterolisthesis. 3. Mild annular bulging L3-4 with mild bilateral foraminal narrowing. 4. Mild left L4-5 foraminal narrowing. 5. Moderate facet arthropathy L4-L5 and L5-S1 with a small amount of edema can be seen with james donis.
== END 2022-11-07 14:43 | disposition home or self-care (01) ==
LOC: RAD 14:43
PROVIDERS: PCP Family Medicine; Visit Provider Emergency Medicine Emergency Medical Services
DX: M47.817 Spondylosis without myelopathy or radiculopathy, lumbosacral region (principal); M51.36 Other intervertebral disc degeneration, lumbar region; M48.061 Spinal stenosis, lumbar region without neurogenic claudication
CPT/HCPCS: 72148

== ENCOUNTER → 2022-12-28 08:24 | Outpatient (BNVA) | payer OTHER, SELFPAY | PROVIDERS: PCP Family Medicine; Visit Provider Specialist | DX: R29.90 Unspecified symptoms and signs involving the nervous system (principal); G43.711 Chronic migraine without aura, intractable, with status migrainosus; G31.84 Mild cognitive impairment of uncertain or unknown etiology; T59.91XA Toxic effect of unspecified gases, fumes and vapors, accidental (unintentional), initial encounter; F07.81 Postconcussional syndrome; X58.XXXA Exposure to other specified factors, initial encounter | CPT/HCPCS: 99213 ==

== ENCOUNTER → 2023-01-12 12:27 | Outpatient (BNVA) | payer OTHER, SELFPAY | PROVIDERS: PCP Family Medicine; Visit Provider Dermatology | DX: L57.0 Actinic keratosis (principal); L82.1 Other seborrheic keratosis; L72.0 Epidermal cyst; L81.4 Other melanin hyperpigmentation; L82.0 Inflamed seborrheic keratosis; L53.8 Other specified erythematous conditions | CPT/HCPCS: 17000; 17110; 99203 ==

== ENCOUNTER 2023-05-08 01:57 | Emergency (ER) | payer OTHER, SELFPAY ==
[2023-05-08 02:08] VITALS: BP 134/88; PULSE 60; RESP 15; TEMP 36.3; O2SAT 96; BMI 29.4
[2023-05-08 02:10] VITALS: RESP 16
--- NOTE | 2023-05-08 03:11 | XRR_ITS ---
PROCEDURE INFORMATION: Exam: XR Lumbosacral Spine Exam date and time: 05/08/2023 3:14 AM Age: 72 years old Clinical indication: Patient HX: C/O worsening low back pain. No recent injury. ; Additional info: Low back pain HX of FX TECHNIQUE: Imaging protocol: Radiologic exam of the lumbosacral spine. Views: 2 or 3 views. COMPARISON: MR lumbar spine wo con* [id number] 11/07/2022 4:11 PM FINDINGS: Bones/joints: There is mild levoscoliosis. There is [id number] multilevel degenerative disc disease. No acute fracture. Normal alignment. Soft tissues: Unremarkable. XR/XR lumbar spine 2-3V* [id number] IMPRESSION: No acute findings.
[2023-05-08] MEDS: orphenadrine 30 mg/mL Inj 2 mL 60 MG IM (04:20)
[2023-05-08] MEDS: ketorolac 30 mg/mL INJ 60 MG IM (04:20)
--- NOTE | 2023-05-08 04:33 | PC.NURSE ---
Oxycodone/ Apap 5/325 x 2 tabs sent home with patient per provider. Instructed to take one at home and then wait at least 6 hrs before taking the 2nd tab if needed.
[2023-05-08 04:34] VITALS: RESP 16; O2SAT 99
--- NOTE | 2023-05-08 04:55 | ED_ITS ---
HPI - Back Pain/Injury General: Chief Complaint: Back Pain/Injury Stated Complaint: Back Pain Time Seen by Provider: 05/08/23 03:18 History of Present Illness: 72-year-old male with a history of a kashif k fracture he says. This happened last year. He said decently intense lower back pain at the lumbosacral junction in the midline for the past week or so. It was more intense last night. He is worried that he may have fractured his back again, as he believes he did it getting out of bed the last time. No radicular pain. No bowel or bladder involvement. No saddle anesthesia. Associated symptoms: Deny abdominal pain, fever(s) or vomiting Review of Systems Const: Denies: fever(s) GI: Denies: abdominal pain or vomiting : Denies: flank pain or difficulty urinating PFSH ED PFSH: Social History Smoking and tobacco/nicotine status: never used tobacco/nicotine Alcohol intake: never Substance/Drug Use: never Physical Exam Const: COMMON NORMALS: no acute distress HENMT: COMMON NORMALS: normocephalic, atraumatic and Normal external nose present HEAD & SCALP: normocephalic and atraumatic NOSE: Normal external nose present and Normal nares present Eye: COMMON NORMALS: Equal, round and reactive pupils present and EOMs intact bilaterally PUPIL: Yes Equal, round and reactive pupils present Neck/C-Spine: GENERAL: Yes trachea midline Chest: CHEST: Yes Symmetrical chest wall rise Resp: COMMON NORMALS: normal respiratory effort and No use of accessory muscles Cardio: COMMON NORMALS: regular rate and regular rhythm RATE: regular rate RHYTHM: regular rhythm Back/Pelvis: OTHER: Examination of the lumbar spine reveals tenderness to palpation in the midline over the L5-S1 junction. No radicular pain on straight leg raise test. Minimal paraspinal muscular spasm. Neuro: JOSE NATONIO COMA SCALE: document [facility] findings [place] coma scale eye opening: Spontaneous Jose Antonio coma scale verbal response: Orientated Jose Antonio coma scale motor response: Obey commands Jose Antonio coma scale total score: 15 Psych: COMMON NORMALS: mental status grossly normal Course Vital Signs: Vital signs: Vital Signs Temperature 97.4 F L 05/08/23 02:08 Pulse Rate 60 05/08/23 02:08 Respiratory Rate 16 05/08/23 04:34 Blood Pressure 134/88 05/08/23 02:08 Pulse Oximetry 99 05/08/23 04:34 Oxygen Delivery Me thod Room Air 05/08/23 02:08 MDM - Back Pain/Injury Medical Decision Making Nonradicular lumbar pain with tenderness. No evidence of acute fracture on x- ray. All radiology interpretation(s) finalized by discharge Discharge Plan Discharge Patient Disposition: Home Clinical Impression: Lumbar spondylolysis Condition: Stable Prescriptions: Continued diclofenac sodium 75 mg tablet,delayed release (DR/EC) 75 mg PO Q12H PRN (Reason: pain) Qty: 20 0RF No Action aspirin [Adult Aspirin Regimen] 81 mg tablet,delayed release (DR/EC) 81 mg PO QAM aspirin 81 mg tablet,chewable 81 mg PO DAILY propranolol 20 mg tablet 20 mg PO BID Qty: 60 3RF Rx Instructions: Take 2 tabs twice daily. hydrochlorothiazide 12.5 mg tablet 12.5 mg PO DAILY Emgality Pen 120 mg/mL pen injector 120 mg SUBCUT ONCE 30 Days Qty: 30 6RF Rx Instructions: inject once monthly Emgality Pen 120 mg/mL pen injector 240 mg SUBCUT ONCE Qty: 1 0RF hydrochlorothiazide 25 mg tablet See Rx Instructions .ROUTE .COMPLEX Qty: 45 3RF Dose Instruction: Take 1/2 (one-half) tablet by mouth once daily Rx Instructions: Take 1/2 (one-half) tablet by mouth once daily Vitamin C 500 mg Tablet 500 mg PO EVERY OTHER DAY Coconut Oil See Rx Instructions .ROUTE .COMPLEX Rx Instructions: one tablespoonful po qam fiber Powder See Rx Instructions .ROUTE .COMPLEX Rx Instructions: one tablespoonful po qam Fish Oil 1 cap PO EVERY OTHER DAY Vitamin D3 1 cap PO EVERY OTHER DAY garlic 1 cap PO EVERY OTHER DAY vitamin E 1 cap PO EVERY OTHER DAY zinc 1 cap PO EVERY OTHER DAY tizanidine 4 mg tablet 4 mg PO Q6H PRN (Reason: muscle spasticity) Qty: 20 0RF Rx Instructions: do not exceed 3 doses per 24 hrs prednisone 20 mg tablet 20 mg PO TID Qty: 15 0RF Rx Instructions: 1 p.o. 3 times daily x3 days, 1 p.o. twice daily x2 days, 1 p.o. daily x2 days Discharge Orders: Discharge ED (Routine); Ordered 05/08/23 Ordered By: García Bullard Referrals: Sandee Fair DO [Primary Care Provider] - 1-3 days Patient Instructions: Back Pain (ED), Opioid Safety, Pain Management Activity Restrictions/Additional Instructions: Medication as directed. Follow-up with your doctor this week. 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
== END 2023-05-08 04:35 | disposition home or self-care (01) ==
PROVIDERS: Emergency Provider Emergency Medicine; PCP Family Medicine
DX: M47.816 Spondylosis without myelopathy or radiculopathy, lumbar region (principal); Z79.82 Long term (current) use of aspirin
CPT/HCPCS: 72100; 96372; 99284; J1885; J2360

== ENCOUNTER 2023-05-09 10:36 | Emergency (ER) | payer OTHER, SELFPAY ==
[2023-05-09 11:16] VITALS: BP 166/90; PULSE 61; RESP 16; TEMP 36.3; O2SAT 94; BMI 29.4
[2023-05-09 13:23] VITALS: BP 145/77; PULSE 56; O2SAT 95
[2023-05-09 13:30] VITALS: BP 133/81; PULSE 59; O2SAT 96
--- NOTE | 2023-05-09 13:37 | ED_ITS ---
HPI - Back Pain/Injury General: Chief Complaint: Back Pain/Injury Stated Complaint: back pain Time Seen by Provider: 05/09/23 12:53 Source: patient Mode of arrival: ambulatory Limitations: no limitations History of Present Illness: Patient is a very nice 72-year-old male who presents to ED today with a complaint of lower back pain over the past 5 to 6 days. Patient states he was seen here 1 to 2 days ago and had x-rays performed and was given IM shots/pills here and discharged home. Patient states his pain has continued. He is not having any radicular symptoms. He states pain does not seem to radiate into his abdomen. Pain is worse with movement. Pain is centered to his midline lower back. No complaints of saddle anesthesia, numbness to his legs, bowel/bladder discomfort. He thinks maybe symptoms started after lifting something heavy. MD elicited complaint: back pain Onset (ago): day(s) Timing: constant Severity: severe Similar Symptoms Previously: Yes Location: lumbar spine Radiation: none Exacerbating factors: movement Relieving factors: none Context: while lifting Associated symptoms: Reports no associated symptoms and difficulty walking (secondary to back pain); Deny abdominal pain, chills, dysuria, fatigue, fever(s), nausea or urinary urgency Work related injury: No Review of Systems Const: Denies: fever(s), chills, body aches, fatigue or malaise Card: Denies: chest pain Resp: Denies: dyspnea GI: Denies: abdominal pain or nausea : Denies: flank pain, difficulty urinating, dysuria, urinary frequency, urinary urgency or urinary hesitancy Musc: Reports: back pain; Denies: neck pain, extremity pain, extremity swelling, joint pain or joint swelling Skin/Breast: Denies: rash Neuro: Reports: difficulty walking (secondary to back pain); Denies: headache(s), numbness in extremities, weakness in extremities, sensory changes or dizziness PFSH ED PFSH: Social History Smoking and tobacco/nicotine status: never used tobacco/nicotine Alcohol intake: never Substance/Drug Use: never Physical Exam Const: COMMON NORMALS: no acute distress, patient oriented x3, no limitations, healthy appearing, alert and well nourished GENERAL APPEARANCE: cooperative Resp: COMMON NORMALS: normal respiratory effort and clear to auscultation bilaterally AUSCULTATION: clear to auscultation bilaterally Cardio: COMMON NORMALS: regular rate and regular rhythm RATE: regular rate RHYTHM: regular rhythm GI: COMMON NORMALS: Normal to inspection, nondistended, normoactive bowel sounds present, Soft to palpation, non-tender and no masses PALPATION: Yes Soft to palpation : COMMON NORMALS: Yes no CVA tenderness BLADDER/KIDNEY EXAM: Yes no CVA tenderness Back/Pelvis: COMMON NORMALS: no CVA tenderness THORACIC SPINE/UPPER BACK: No thoracic spinal tenderness, No paraspinal muscle tenderness and No paraspinal muscle spasm LUMBAR SPINE/LOWER BACK: Yes ROM limited, Yes lumbar spinal tenderness, No paraspinal muscle tenderness, No paraspinal muscle spasm and Yes straight leg raise negative bilaterally PELVIS: Yes buttocks normal and No sciatic notch tenderness SACROILIAC JOINTS: Yes SI joints normal SACRUM: no tenderness COCCYX: no tenderness Extremity: COMMON NORMALS: normal to inspection, no clubbing, cyanosis or edema, no calf tenderness and no pedal edema GENERAL: Yes normal exam except as noted Neuro: COMMON NORMALS: patient oriented x3 SENSORIUM/ORIENTATION: Yes alert MOTOR EXAM: 5/5 motor strength present throughout Skin: COMMON NORMALS: no rashes or lesions noted GENERAL SKIN EXAM: no rashes or lesions noted Course Vital Signs: Vital signs: Vital Signs Temperature 97.4 F L 05/09/23 11:16 Pulse Rate 56 L 05/09/23 13:23 Respiratory Rate 17 05/09/23 13:53 Blood Pressure 145/77 05/09/23 13:23 Pulse Oximetry 95 05/09/23 13:23 Oxygen Delivery Me thod Room Air 05/09/23 13:23 MDM - Back Pain/Injury Medical Decision Making Pain improved after IM medications given here. CT imaging obtained which shows no acute fracture. He does have degenerative changes. Patient has no acute neurologic deficits. Will send him home with medications on today's visit and recommend he follow-up with his PCP Dr. Fair later this week/early next week for reevaluation of symptoms do not seem to be improving. Return to ED precautions given. Differential Diagnosis Likely lumbar radiculopathy and strain of lumbar region All radiology interpretation(s) finalized by discharge Discharge Plan Discharge Condition: Stable Prescriptions: No Action aspirin [Adult Aspirin Regimen] 81 mg tablet,delayed release (DR/EC) 81 mg PO QAM aspirin 81 mg tablet,chewable 81 mg PO DAILY propranolol 20 mg tablet 20 mg PO BID Qty: 60 3RF Rx Instructions: Take 2 tabs twice daily. hydrochlorothiazide 12.5 mg tablet 12.5 mg PO DAILY Emgality Pen 120 mg/mL pen injector 120 mg SUBCUT ONCE 30 Days Qty: 30 6RF Rx Instructions: inject once monthly Emgality Pen 120 mg/mL pen injector 240 mg SUBCUT ONCE Qty: 1 0RF hydrochlorothiazide 25 mg tablet See Rx Instructions .ROUTE .COMPLEX Qty: 45 3RF Dose Instruction: Take 1/2 (one-half) tablet by mouth once daily Rx Instructions: Take 1/2 (one-half) tablet by mouth once daily Vitamin C 500 mg Tablet 500 mg PO EVERY OTHER DAY Coconut Oil See Rx Instructions .ROUTE .COMPLEX Rx Instructions: one tablespoonful po qam fiber Powder See Rx Instructions .ROUTE .COMPLEX Rx Instructions: one tablespoonful po qam Fish Oil 1 cap PO EVERY OTHER DAY Vitamin D3 1 cap PO EVERY OTHER DAY garlic 1 cap PO EVERY OTHER DAY vitamin E 1 cap PO EVERY OTHER DAY zinc 1 cap PO EVERY OTHER DAY tizanidine 4 mg tablet 4 mg PO Q6H PRN (Reason: muscle spasticity) Qty: 20 0RF Rx Instructions: do not exceed 3 doses per 24 hrs prednisone 20 mg tablet 20 mg PO TID Qty: 15 0RF Rx Instructions: 1 p.o. 3 times daily x3 days, 1 p.o. twice daily x2 days, 1 p.o. daily x2 days diclofenac sodium 75 mg tablet,delayed release (DR/EC) 75 mg PO Q12H PRN (Reason: pain) Qty: 20 0RF Referrals: Sandee Fair DO [Primary Care Provider] - Coding Level of Care Code ED Mechanical Adjuster for Jaxon Reed
--- NOTE | 2023-05-09 13:43 | CT_ITS ---
WS: [id number] CT LUMBAR SPINE, noncontrast. HISTORY: low back pain; poss injury? TECHNIQUE: Contiguous 2.0 mm axial imaging are performed. Sagittal and coronal reformats are submitte d and reviewed. All CT scans at [facility] use at least one of these dose optimization techni ques: automated exposure control; mA and/or kV adjustment per patient size (includes targeted exams w here dose is matched to clinical indication); or iterative reconstruction. IV contrast: None DLP: 896.72 mGy.cm COMPARISON: None available. Straightening of the normal lumbar lordosis. No fractures. Partially calcified discs in the lumbar sp ine at L1-2, L2-3 and L3-4. Bilateral chronic pars defects at L5. L1-2: Normal. L2-3: Normal. L3-4: Mild osteophytic ridging and annular disc bulging. Bilateral mild foraminal stenosis and mild c entral stenosis. L4-5: Mild annular disc bulging. No stenosis. L5-S1: Mild annular disc bulging. Very minimal contact on the RIGHT exiting L5 nerve root. Mild trisha inal stenosis. Area of decreased attenuation in the RIGHT kidney is probably a renal cyst. Hounsfield units are low. Cannot classify further. Bilateral SI joint partial fusion. IMPRESSION: 1. No acute lumbar spine fracture. 2. Mild degenerative disc disease and mild LEFT scoliosis of the lumbar spine. 3. Mild bilateral foraminal stenosis at L5-S1.
[2023-05-09 13:53] VITALS: RESP 17
[2023-05-09] MEDS: morphine 4 mg/mL SDV 1 mL IM (13:53)
[2023-05-09] MEDS: orphenadrine 30 mg/mL Inj 2 mL 60 MG IM (13:53)
[2023-05-09 14:30] VITALS: BP 150/86; PULSE 64; O2SAT 94
== END 2023-05-09 14:50 | disposition home or self-care (01) ==
PROVIDERS: Emergency Provider Physician Assistant; PCP Family Medicine
DX: M54.50 Low back pain, unspecified (principal); Z79.82 Long term (current) use of aspirin
CPT/HCPCS: 72131; 96372; 99284; J2270; J2360

== ENCOUNTER → 2023-07-17 09:03 | Outpatient (BNVA) | payer OTHER, SELFPAY | PROVIDERS: PCP Family Medicine; Visit Provider Nurse Practitioner Family | DX: L57.0 Actinic keratosis (principal); L82.1 Other seborrheic keratosis; L72.0 Epidermal cyst; L81.4 Other melanin hyperpigmentation; L57.8 Other skin changes due to chronic exposure to nonionizing radiation | CPT/HCPCS: 17000; 99213 ==

== ENCOUNTER 2023-10-04 15:05 | Emergency (ER) | payer OTHER, SELFPAY ==
[2023-10-04 15:05] VITALS: BP 125/81; PULSE 76; RESP 16; TEMP 36.7; O2SAT 94
--- NOTE | 2023-10-04 15:13 | W.ED.BACK ---
HPI - Back Pain/Injury General: Chief Complaint: Back Pain/Injury Stated Complaint: back pain Time Seen by Provider: 10/04/23 15:11 History of Present Illness: 72-year-old male patient comes in today with exacerbation of back pain. Patient reports 2 to 3 days ago he had carried a dehumidifier down the stairs into the basement when he aggravated his back. Patient appears nontoxic. Patient denies any new injury. Review of Systems General: Reports: 10 or more systems reviewed and unremarkable except in HPI and below Musc: Reports: back pain PFSH ED PFSH: Social History Smoking and tobacco/nicotine status: never used tobacco/nicotine Alcohol intake: never Substance/Drug Use: never Physical Exam Const: COMMON NORMALS: alert HENMT: COMMON NORMALS: normocephalic HEAD & SCALP: normocephalic Neck/C-Spine: COMMON NORMALS: full ROM Resp: COMMON NORMALS: normal respiratory effort and clear to auscultation bilaterally AUSCULTATION: clear to auscultation bilaterally Cardio: COMMON NORMALS: regular rate and regular rhythm RATE: regular rate RHYTHM: regular rhythm GI: COMMON NORMALS: Soft to palpation and non-tender PALPATION: Yes Soft to palpation Back/Pelvis: LUMBAR SPINE/LOWER BACK: Yes lumbar spinal tenderness and Yes paraspinal muscle tenderness Extremity: COMMON NORMALS: full ROM Neuro: SENSORIUM/ORIENTATION: Yes alert Skin: COMMON NORMALS: turgor normal GENERAL SKIN EXAM: turgor normal Course Vital Signs: Vital signs: Vital Signs Temperature 98.1 F 10/04/23 15:05 Pulse Rate 76 10/04/23 15:05 Respiratory Rate 16 10/04/23 15:05 Blood Pressure 125/81 10/04/23 15:05 Pulse Oximetry 94 10/04/23 15:05 Oxygen Delivery Me thod Room Air 10/04/23 15:05 MDM - Back Pain/Injury Medical Decision Making 72-year-old male patient comes in today for complaints of increased low back pain. On exam patient appears nontoxic. Patient has muscle tenderness and spinal tenderness to the lumbar region of his back. Patient is ambulatory. I reviewed the medical record and noted the MRI done in October 2023, and a CT of the lumbar spine done and April 2023. Both of them note significant degeneration of the disc with some foraminal stenosis of his lower lumbar spine. Differential diagnosis includes intervertebral disc disease, facet arthropathy, lumbar strain. Believe patient probably has some aggravation of his chronic disease and possibly a lumbar strain due to him carrying down the humidifier to his basement. Patient be given some steroid to help with inflammation and some Celebrex to help with pain and inflammation further. Patient reports understanding of care plan need for follow-up with primary care or orthopedic spine for further evaluation and treatment. Patient reported understanding and agreed to plan. No radiology studies performed this visit Discharge Plan Discharge Patient Disposition: Home Clinical Impression: Intervertebral disc disorder of lumbar region with myelopathy Condition: Stable Prescriptions: New celecoxib 200 mg capsule 200 mg PO BID Qty: 20 0RF Continued prednisone 20 mg tablet 20 mg PO TID Qty: 15 0RF Rx Instructions: 1 p.o. 3 times daily x3 days, 1 p.o. twice daily x2 days, 1 p.o. daily x2 days No Action aspirin [Adult Aspirin Regimen] 81 mg tablet,delayed release (DR/EC) 81 mg PO QAM aspirin 81 mg tablet,chewable 81 mg PO DAILY propranolol 20 mg tablet 20 mg PO BID Qty: 60 3RF Rx Instructions: Take 2 tabs twice daily. hydrochlorothiazide 12.5 mg tablet 12.5 mg PO DAILY Emgality Pen 120 mg/mL pen injector 120 mg SUBCUT ONCE 30 Days Qty: 30 6RF Rx Instructions: inject once monthly Emgality Pen 120 mg/mL pen injector 240 mg SUBCUT ONCE Qty: 1 0RF hydrochlorothiazide 25 mg tablet See Rx Instructions .ROUTE .COMPLEX Qty: 45 3RF Dose Instruction: Take 1/2 (one-half) tablet by mouth once daily Rx Instructions: Take 1/2 (one-half) tablet by mouth once daily Vitamin C 500 mg Tablet 500 mg PO EVERY OTHER DAY Coconut Oil See Rx Instructions .ROUTE .COMPLEX Rx Instructions: one tablespoonful po qam fiber Powder See Rx Instructions .ROUTE .COMPLEX Rx Instructions: one tablespoonful po qam Fish Oil 1 cap PO EVERY OTHER DAY Vitamin D3 1 cap PO EVERY OTHER DAY garlic 1 cap PO EVERY OTHER DAY vitamin E 1 cap PO EVERY OTHER DAY zinc 1 cap PO EVERY OTHER DAY cyclobenzaprine 10 mg tablet 10 mg PO TID Qty: 14 0RF hydrocodone-acetaminophen 5-325 mg tablet 1 tab PO Q6H PRN (Reason: pain) Qty: 14 0RF Medrol (Hardik) 4 mg tablets,dose pack See Rx Instructions .ROUTE .COMPLEX Qty: 21 0RF Rx Instructions: orally per package directions tizanidine 4 mg tablet 4 mg PO Q6H PRN (Reason: muscle spasticity) Qty: 20 0RF Rx Instructions: do not exceed 3 doses per 24 hrs diclofenac sodium 75 mg tablet,delayed release (DR/EC) 75 mg PO Q12H PRN (Reason: pain) Qty: 20 0RF Discharge Orders: Discharge ED (Routine); Ordered 10/04/23 Ordered By: Mark Alarcon Referrals: Sandee Fair DO [Primary Care Provider] - Discharge Diet: Usual diet Discharge Activity: Increase activity as tolerated Patient Instructions: Lumbar Disc Herniation (ED) Activity Restrictions/Additional Instructions: Activity as tolerated. Use ice or heat for further pain relief. Follow-up with orthopedic community education specialist through the [facility] for further evaluation and treatment. Coding Level of Care Code ED Vending Machine Filler for Jaxon Reed
[2023-10-04] MEDS: ketorolac 30 mg/mL INJ IM (15:20)
[2023-10-04] MEDS: dexamethasone 10 mg/mL INJ IM (15:20)
[2023-10-04 15:44] VITALS: BP 120/77; PULSE 77; RESP 16; O2SAT 92
== END 2023-10-04 15:52 | disposition home or self-care (01) ==
PROVIDERS: Emergency Provider Nurse Practitioner Family; PCP Family Medicine
DX: M51.06 Intervertebral disc disorders with myelopathy, lumbar region (principal); Z79.82 Long term (current) use of aspirin
CPT/HCPCS: 96372; 99284; J1100; J1885

== ENCOUNTER 2023-11-06 19:07 | Emergency (ER) | payer OTHER, MEDICARE, SELFPAY ==
[2023-11-06 19:11] VITALS: BP 122/76; PULSE 80; RESP 16; TEMP 36.4; O2SAT 96; BMI 27.3
--- NOTE | 2023-11-06 19:32 | ED_ITS ---
HPI - Back Pain/Injury General: Chief Complaint: Back Pain/Injury Stated Complaint: Back pain Time Seen by Provider: 11/06/23 19:11 Source: patient Mode of arrival: ambulatory Limitations: no limitations History of Present Illness: Patient is a 72-year-old male presenting to the emergency department complaining of chronic back pain for the past 3 years, worsening over the past couple of days. States he is set to see orthopedic/spine on , however just presents because the pain has been unbearable to the point where he is not sleeping. He notes the pain specifically at this time is located to the upper back with radiation to bilateral shoulders, and is making his neck stiff. No recent trauma, injury, fall, or other concerning historical factors noted. No red flag back symptoms. He has been taking Advil and has a pain patch. States he normally is ambulatory on his own. No history of back surgeries. He has been wearing a back brace which she states helps a little bit. [facility], and has history of MRI of the lumbar spine earlier this year. MD elicited complaint: back pain Pertinent past history: prior back pain Onset (ago): year(s) Timing: progressively worsening Similar Symptoms Previously: Yes Location: lumbar spine and thoracic spine Exacerbating factors: movement and lifting Relieving factors: none Associated symptoms: Deny abdominal pain, chills, fever(s), nausea or vomiting Related Data Home Medications Medication Instructions Recorded Confirmed hydrochlorothiazide 12.5 mg tablet 12.5 mg PO DAILY 12/23/19 12/28/22 aspirin 81 mg tablet,delayed 81 mg PO QAM 12/27/19 12/28/22 release (Adult Aspirin Regimen) Fish Oil 1 cap PO EVERY OTHER DAY 11/20/20 12/28/22 Vitamin D3 1 cap PO EVERY OTHER DAY 11/20/20 12/28/22 ascorbic acid (vitamin C) 500 mg 500 mg PO EVERY OTHER DAY 11/20/20 12/28/22 tablet (Vitamin C) coconut oil (bulk) See Rx Instructions .Route .COMPLEX 11/20/20 12/28/22 garlic 1 cap PO EVERY OTHER DAY 11/20/20 12/28/22 psyllium seed (with dextrose) oral See Rx Instructions .Route .COMPLEX 11/20/20 12/28/22 powder (fiber) vitamin E 1 cap PO EVERY OTHER DAY 11/20/20 12/28/22 zinc 1 cap PO EVERY OTHER DAY 11/20/20 12/28/22 aspirin 81 mg chewable tablet 81 mg PO DAILY 05/18/21 12/28/22 Previous Rx's Medication Instructions Recorded propranolol 20 mg tablet 20 mg PO BID #60 tabs 06/21/21 galcanezumab-gnlm 120 mg/mL 120 mg SUBCUT ONCE 1 month #30 mL 07/05/22 subcutaneous pen injector (Emgality Pen) galcanezumab-gnlm 120 mg/mL 240 mg (2 mL) SUBCUT ONCE #1 mL 07/06/22 subcutaneous pen injector (Emgality Pen) tizanidine 4 mg tablet 4 mg PO Q6H PRN muscle spasticity 10/12/22 #20 tabs hydrochlorothiazide 25 mg tablet See Rx Instructions .Route 02/20/23 .COMPLEX #45 tabs diclofenac sodium 75 mg 75 mg PO Q12H PRN pain #20 tabs 05/08/23 tablet,delayed release cyclobenzaprine 10 mg tablet 10 mg PO TID #14 tabs 05/09/23 hydrocodone 5 mg-acetaminophen 325 1 tab PO Q6H PRN pain #14 tabs 05/09/23 mg tablet methylprednisolone 4 mg tablets in See Rx Instructions PO .COMPLEX 05/09/23 a dose pack (Medrol (Hardik)) #21 ea celecoxib 200 mg capsule 200 mg PO BID #20 caps 10/04/23 prednisone 20 mg tablet 60 mg (3 x 20 mg) PO ONCE 5 days 11/06/23 #15 tabs Allergies Allergy/AdvReac Type Severity Reaction Status Date / Time No Known Allergies Allergy Verified 11/06/23 19:16 Review of Systems General: Reports: 10 or more systems reviewed and unremarkable except in HPI and below Const: Denies: fever(s) or chills Card: Denies: chest pain Resp: Denies: dyspnea or productive cough GI: Denies: abdominal pain, nausea, vomiting or diarrhea : Denies: flank pain Musc: Reports: neck pain and back pain; Denies: extremity pain, extremity swelling, joint pain, joint swelling, joint redness, joint warmth, limited range of motion or muscle weakness Skin/Breast: Denies: rash Neuro: Denies: headache(s), numbness in extremities or weakness in extremities PFSH ED PFSH: Social History Smoking and tobacco/nicotine status: never used tobacco/nicotine Alcohol intake: never Substance/Drug Use: never Physical Exam Const: COMMON NORMALS: no acute distress, patient oriented x3, no limitations, healthy appearing, alert and well nourished HENMT: COMMON NORMALS: normocephalic and atraumatic HEAD & SCALP: normocephalic and atraumatic Neck/C-Spine: COMMON NORMALS: full ROM, supple and no meningeal signs Resp: COMMON NORMALS: normal respiratory effort, No use of accessory muscles and clear to auscultation bilaterally AUSCULTATION: clear to auscultation bilaterally Cardio: COMMON NORMALS: regular rate and regular rhythm RATE: regular rate RHYTHM: regular rhythm Back/Pelvis: OTHER: No significant reproducible spinous process tenderness to palpation. He endorses tenderness to palpation of the paracervical, parathoracic, and paralumbar muscles with no active spasming. No signs of trauma or step-off deformity. Back brace is present on examination. Straight leg raise positive on the left. Extremity: COMMON NORMALS: normal to inspection, full ROM, capillary refill normal, no joint enlargement and no clubbing, cyanosis or edema Neuro: COMMON NORMALS: patient oriented x3, moves all extremities, no focal motor deficits and no sensory deficits noted SENSORIUM/ORIENTATION: Yes alert MENINGEAL SIGNS: Yes no meningeal signs Skin: COMMON NORMALS: no rashes or lesions noted GENERAL SKIN EXAM: no rashes or lesions noted Course Vital Signs: Vital signs: Vital Signs Temperature 97.5 F L 11/06/23 19:11 Pulse Rate 60 11/06/23 21:59 Respiratory Rate 16 11/06/23 21:59 Blood Pressure 132/90 11/06/23 19:38 Pulse Oximetry 96 11/06/23 21:59 Oxygen Delivery Me thod Room Air 11/06/23 19:38 MDM - Back Pain/Injury Medical Decision Making Patient present with acute on chronic back pain, states this has been going on for 3 years but has been worsening lately. He has a follow-up appointment scheduled with orthopedic/spine on , however states he just wants something for pain. He was given Toradol, Norflex, and a steroid here in the emergency department, and upon recheck states he feels better though his neck pain is still worsening. A x-ray was obtained that did not show any acute findings, and again upon recheck states that he actually feels better and wants to go home. Will prescribe short course of steroids and he will take his prescribed medications at home. He will continue with follow-up on and reasons to return were discussed. Dr. Ley made aware of patient's case and current findings and agrees with disposition at this time. Labs Radiology Impressions Cervical Spine X-Ray 11/06/23 20:20 IMPRESSION: No acute fractures or subluxations. All radiology interpretation(s) finalized by discharge Discharge Plan Discharge Patient Disposition: Home Clinical Impression: Chronic neck pain Chronic low back pain Qualifiers: Back pain laterality: unspecified Sciatica presence: with sciatica Sciatica laterality: sciatica of left side Qualified Code(s): M54.42 - Lumbago with sciatica, left side Condition: Stable Prescriptions: New prednisone 20 mg tablet 60 mg PO ONCE 5 Days Qty: 15 0RF No Action aspirin [Adult Aspirin Regimen] 81 mg tablet,delayed release (DR/EC) 81 mg PO QAM aspirin 81 mg tablet,chewable 81 mg PO DAILY propranolol 20 mg tablet 20 mg PO BID Qty: 60 3RF Rx Instructions: Take 2 tabs twice daily. hydrochlorothiazide 12.5 mg tablet 12.5 mg PO DAILY Emgality Pen 120 mg/mL pen injector 120 mg SUBCUT ONCE 30 Days Qty: 30 6RF Rx Instructions: inject once monthly Emgality Pen 120 mg/mL pen injector 240 mg SUBCUT ONCE Qty: 1 0RF hydrochlorothiazide 25 mg tablet See Rx Instructions .ROUTE .COMPLEX Qty: 45 3RF Dose Instruction: Take 1/2 (one-half) tablet by mouth once daily Rx Instructions: Take 1/2 (one-half) tablet by mouth once daily Vitamin C 500 mg Tablet 500 mg PO EVERY OTHER DAY Coconut Oil See Rx Instructions .ROUTE .COMPLEX Rx Instructions: one tablespoonful po qam fiber Powder See Rx Instructions .ROUTE .COMPLEX Rx Instructions: one tablespoonful po qam Fish Oil 1 cap PO EVERY OTHER DAY Vitamin D3 1 cap PO EVERY OTHER DAY garlic 1 cap PO EVERY OTHER DAY vitamin E 1 cap PO EVERY OTHER DAY zinc 1 cap PO EVERY OTHER DAY cyclobenzaprine 10 mg tablet 10 mg PO TID Qty: 14 0RF hydrocodone-acetaminophen 5-325 mg tablet 1 tab PO Q6H PRN (Reason: pain) Qty: 14 0RF Medrol (Hardik) 4 mg tablets,dose pack See Rx Instructions .ROUTE .COMPLEX Qty: 21 0RF Rx Instructions: orally per package directions tizanidine 4 mg tablet 4 mg PO Q6H PRN (Reason: muscle spasticity) Qty: 20 0RF Rx Instructions: do not exceed 3 doses per 24 hrs diclofenac sodium 75 mg tablet,delayed release (DR/EC) 75 mg PO Q12H PRN (Reason: pain) Qty: 20 0RF celecoxib 200 mg capsule 200 mg PO BID Qty: 20 0RF Discharge Orders: Discharge ED (Routine); Ordered 11/06/23 Ordered By: Junior Valdes Referrals: Sandee Fair DO [Primary Care Provider] - Discharge Diet: Usual diet Discharge Activity: Increase activity as tolerated Patient Instructions: Pain Management Activity Restrictions/Additional Instructions: Continue taking your pain medications at home, and take steroids as prescribed. Please continue follow-up on as discussed. Avoid reinjury. Return with any new or concerning symptoms you may have. Coding Level of Care Code ED Recovery Analyst for Jaxon Reed
[2023-11-06 19:38] VITALS: BP 132/90; PULSE 74; RESP 18; O2SAT 98
[2023-11-06] MEDS: orphenadrine 30 mg/mL Inj 2 mL 60 MG IM (19:43)
[2023-11-06] MEDS: dexamethasone 10 mg/mL INJ IM (19:43)
[2023-11-06] MEDS: ketorolac 60 mg/2 mL INJ IM (19:43)
--- NOTE | 2023-11-06 20:20 | XRR_ITS ---
PROCEDURE INFORMATION: Exam: XR Cervical Spine Exam date and time: 11/06/2023 8:29 PM Age: 72 years old Clinical indication: Neck pain TECHNIQUE: Imaging protocol: Radiologic exam of the cervical spine. Views: 2 or 3 views. COMPARISON: MR head wo con* [id number] 01/18/2021 12:34 PM FINDINGS: Bones/joints: No acute fractures or subluxations. Normal sagittal alignment. Vertebral body heights are preserved. Mild multilevel intervertebral disc space narrowing and bilateral facet arthropathy. The dens appears intact. Soft tissues: Unremarkable. XR/XR cervical spine 3V* [id number] IMPRESSION: No acute fractures or subluxations.
[2023-11-06 21:59] VITALS: PULSE 60; RESP 16; O2SAT 96
== END 2023-11-06 22:01 | disposition home or self-care (01) ==
PROVIDERS: Emergency Provider Physician Assistant; PCP Family Medicine
DX: G89.29 Other chronic pain (principal); M54.2 Cervicalgia; M54.42 Lumbago with sciatica, left side; Z79.82 Long term (current) use of aspirin
CPT/HCPCS: 72040; 96372; 99284; J1100; J1885; J2360

== ENCOUNTER → 2023-11-09 13:01 | Outpatient (BNVA) | payer OTHER, MEDICARE, SELFPAY | PROVIDERS: PCP Family Medicine; Visit Provider Orthopaedic Surgery | DX: M47.816 Spondylosis without myelopathy or radiculopathy, lumbar region (principal) | CPT/HCPCS: 72110; 99204 ==

== ENCOUNTER → 2023-11-20 13:46 | Outpatient (BNVA) | payer OTHER, SELFPAY | PROVIDERS: PCP Family Medicine; Visit Provider Specialist | DX: M25.552 Pain in left hip (principal) | CPT/HCPCS: 73502; 99204 ==

== ENCOUNTER → 2023-12-13 11:18 | Outpatient (BNVA) | payer OTHER, SELFPAY | PROVIDERS: PCP Family Medicine; Referring Provider Nurse Practitioner; Visit Provider Surgery | DX: Z12.11 Encounter for screening for malignant neoplasm of colon (principal); R03.0 Elevated blood-pressure reading, without diagnosis of hypertension | CPT/HCPCS: 99203 ==

== ENCOUNTER → 2024-01-16 08:13 | Outpatient (BNVA) | payer OTHER, SELFPAY | PROVIDERS: PCP Family Medicine; Visit Provider Nurse Practitioner Family | DX: L57.0 Actinic keratosis (principal); L82.0 Inflamed seborrheic keratosis; L82.1 Other seborrheic keratosis; L81.4 Other melanin hyperpigmentation; L57.8 Other skin changes due to chronic exposure to nonionizing radiation | CPT/HCPCS: 17000; 17110; 99213 ==

== ENCOUNTER 2024-01-18 06:22 | Day surgery (SDC) | payer OTHER, SELFPAY ==
--- NOTE | 2024-01-18 06:01 | W.PM.OPSFHP ---
Same Day Surgery H&P Indication for Procedure/HPI DATE OF PROCEDURE: January 18, 2024 CHIEF COMPLAINT/INDICATIONFOR SURGICAL PROCEDURE: Need for screening colonoscopy PREOP DIAGNOSIS: need for screening colonoscopy PLANNED PROCEDURE: Operation Date: 01/18/24 07:40 Proposed Procedures p Colonoscopy 96449, G0105, Z12.11(Not Applicable) - Junior Palomo MD Medications/Allergies* Home Medications Medication Instructions Recorded Confirmed Type hydrochlorothiazide 12.5 mg tablet 12.5 mg PO DAILY 12/23/19 01/16/24 History Fish Oil 1 cap PO EVERY OTHER DAY 11/20/20 01/16/24 History Vitamin D3 1 cap PO EVERY OTHER DAY 11/20/20 01/16/24 History ascorbic acid (vitamin C) 500 mg 500 mg PO EVERY OTHER DAY 11/20/20 01/16/24 History tablet (Vitamin C) coconut oil (bulk) See Rx Instructions .Route .COMPLEX 11/20/20 01/16/24 History garlic 1 cap PO EVERY OTHER DAY 11/20/20 01/16/24 History psyllium seed (with dextrose) oral See Rx Instructions .Route .COMPLEX 11/20/20 01/16/24 History powder (fiber) vitamin E 1 cap PO EVERY OTHER DAY 11/20/20 01/16/24 History zinc 1 cap PO EVERY OTHER DAY 11/20/20 01/16/24 History aspirin 81 mg chewable tablet 81 mg PO DAILY 05/18/21 01/16/24 History fluticasone propionate 50 1 spray intranasal DAILY 12/13/23 01/16/24 History mcg/actuation nasal spray,suspension cyclobenzaprine 10 mg tablet 10 mg PO TID PRN muscle spasms 01/16/24 01/16/24 History Allergies/Adverse Reactions Allergy/AdvReac Type Severity Reaction Status Date / Time No Known Allergies Allergy Verified 12/13/23 11:27 Pertinent History/Comorbid Conditions* Social History Smoking and tobacco/nicotine status: never used tobacco/nicotine Alcohol intake: never Substance/Drug Use: never Pertinent Exam Findings alert, oriented x 3 and clear to auscultation bilaterally Recommendations Surgery/Procedure today Coding Level of Care Code Acute Code for Chg Fwd
[2024-01-18 06:30] VITALS: BMI 28.3
[2024-01-18 06:40] VITALS: BP 107/78; PULSE 66; RESP 18; TEMP 36.2; O2SAT 93
[2024-01-18] MEDS: sodium chloride 0.9% 1,000 ML 30 ML IV (06:40)
--- NOTE | 2024-01-18 06:58 | ANES.PREANE2 ---
Pre-Anesthetic Assessment Height/Weight: Height 1.78 m Weight 89.358 kg Temp Pulse Resp BP Pulse Ox O2 Del Method 97.1 F L 66 18 107/78 93 Room Air 01/18/24 06:40 01/18/24 06:40 01/18/24 06:40 01/18/24 06:40 01/18/24 06:40 01/18/24 06:40 Preop Diagnosis: need for screening colonoscopy Operation Date: 01/18/24 07:40 Proposed Procedures p Colonoscopy 07640, G0105, Z12.11(Not Applicable) - Junior Palomo MD Familial anesthetic complications: none Was Beta Breanna taken within 24 hours: N/A Was Clonidine taken within 24 hours: N/A Last intake: Intake Last Liquid Date 01/17/24 Last Solid Date 01/16/24 Social No alcohol and No tobacco Exam alert, oriented x 3, clear to auscultation bilaterally and regular rate & rhythm Airway Dentition: false Comments: Comments: false lowers History/ROS No significant history except as noted and No significant complaints Pulmonary None reported CV/HEM Hypertension None reported Hepatic None reported GI None reported Metabolic None reported Musc/skel None reported Neuropsych None reported Anesthetic Plan ASA status: 2 Anesthesia: MAC Risk of > 500 ml blood loss (7ml/kg in children): No Medications/Allergies Home Medications Medication Instructions Recorded Confirmed Last Taken Type hydrochlorothiazide 12.5 mg tablet 12.5 mg PO DAILY 12/23/19 01/16/24 01/17/24 History Fish Oil 1 cap PO EVERY OTHER DAY 11/20/20 01/16/24 01/17/24 History Vitamin D3 1 cap PO EVERY OTHER DAY 11/20/20 01/16/24 01/17/24 History ascorbic acid (vitamin C) 500 mg 500 mg PO EVERY OTHER DAY 11/20/20 01/16/24 01/17/24 History tablet (Vitamin C) coconut oil (bulk) See Rx Instructions .Route .COMPLEX 11/20/20 01/16/24 01/17/24 History garlic 1 cap PO EVERY OTHER DAY 11/20/20 01/16/24 01/17/24 History psyllium seed (with dextrose) oral See Rx Instructions .Route .COMPLEX 11/20/20 01/16/24 01/17/24 History powder (fiber) vitamin E 1 cap PO EVERY OTHER DAY 11/20/20 01/16/24 01/17/24 History zinc 1 cap PO EVERY OTHER DAY 11/20/20 01/16/24 01/17/24 History aspirin 81 mg chewable tablet 81 mg PO DAILY 05/18/21 01/16/24 01/17/24 History fluticasone propionate 50 1 spray intranasal DAILY 12/13/23 01/16/24 01/17/24 History mcg/actuation nasal spray,suspension cyclobenzaprine 10 mg tablet 10 mg PO TID PRN muscle spasms 01/16/24 01/16/24 01/17/24 History Allergies Allergy/AdvReac Type Severity Reaction Status Date / Time No Known Allergies Allergy Verified 01/18/24 06:31 Current Medications Generic Name Dose Route Start Last Admin Trade Name Freq PRN Reason Stop Dose Admin Sodium Chloride 1,000 mls @ 30 mls/hr 01/18/24 06:30 01/18/24 06:40 Sodium Chloride 0.9% IV 01/19/24 06:29 30 mls/hr .Q24H NABOR Administration PFSH Anesthesia Social History Smoking and tobacco/nicotine status: never used tobacco/nicotine Alcohol intake: never Substance/Drug Use: never Data Anesthesia Cardiac Studies: No Data to Display
[2024-01-18 07:53] VITALS: BP 100/59; PULSE 51; RESP 18; TEMP 36.1; O2SAT 97
[2024-01-18 08:05] VITALS: BP 105/68; PULSE 56; RESP 18; O2SAT 97
[2024-01-18 08:15] VITALS: BP 106/63; PULSE 51; RESP 16; O2SAT 97
--- NOTE | 2024-01-18 10:11 | ANE.PACU2 ---
Inpatient post-anesthesia follow up: Airway intact: Yes Vital signs: Temperature 97 F Pulse Rate 51 Respiratory Rate 16 Blood Pressure 106/63 Pulse Oximetry 97 Oxygen Delivery Me thod Room Air Oxygen Flow Rate Fraction of Inspir ed Oxygen Hydration adequate: Yes Nausea and vomiting: No Pain level: 1 Mental status: Baseline
== END 2024-01-18 08:35 | disposition home or self-care (01) ==
PROVIDERS: PCP Family Medicine; Visit Provider Surgery
PROC: 0DJD8ZZ Inspection of Lower Intestinal Tract, Via Natural or Artificial Opening Endoscopic (ICD-10-PCS; CPT 45378; principal; 2024-01-18 07:40)
DX: Z12.11 Encounter for screening for malignant neoplasm of colon (principal); D12.8 Benign neoplasm of rectum; K64.8 Other hemorrhoids; I10 Essential (primary) hypertension
CPT/HCPCS: 45380; 88305; J2704; J7030

== ENCOUNTER → 2024-01-31 12:06 | Outpatient (BNVA) | payer OTHER, SELFPAY | PROVIDERS: PCP Family Medicine; Visit Provider Surgery | DX: Z09 Encounter for follow-up examination after completed treatment for conditions other than malignant neoplasm (principal) | CPT/HCPCS: 99213 ==

== ENCOUNTER → 2024-04-30 08:22 | Outpatient (BNVA) | payer OTHER, SELFPAY | PROVIDERS: PCP Family Medicine; Visit Provider Nurse Practitioner Family | DX: L23.9 Allergic contact dermatitis, unspecified cause (principal); L21.8 Other seborrheic dermatitis; L81.4 Other melanin hyperpigmentation; L57.8 Other skin changes due to chronic exposure to nonionizing radiation; D22.39 Melanocytic nevi of other parts of face; D22.5 Melanocytic nevi of trunk; L57.0 Actinic keratosis | CPT/HCPCS: 17000; 99214 ==

== ENCOUNTER 2024-05-20 05:21 | Emergency (ER) | payer OTHER, MEDICARE, SELFPAY ==
[2024-05-20 05:27] VITALS: BP 110/80; PULSE 71; RESP 16; TEMP 36.6; O2SAT 96; BMI 29.2
[2024-05-20] MEDS: ketorolac 60 mg/2 mL INJ IM (05:45)
[2024-05-20] MEDS: orphenadrine 30 mg/mL Inj 2 mL 60 MG IM (05:46)
[2024-05-20] MEDS: dexamethasone 10 mg/mL INJ IM (05:46)
--- NOTE | 2024-05-20 06:18 | W.ED.BACK ---
HPI - Back Pain/Injury General: Chief Complaint: Back Pain/Injury Stated Complaint: Back Out Time Seen by Provider: 05/20/24 05:34 History of Present Illness: 73-year-old male presents emergency room with complaint of right sided low back pain. He has had this chronically in the past uses some patches [id number] he had run out of both. He no urinary retention no fecal incontinence. Patient reports several years ago he had a back injury currently has had chronic back pain since. Does not recall anything that seem to precipitate this particular episode. No recent trauma. He has no pain radiating to his legs. Pain is worse with bending twisting better with being supine or semireclined. He denies any dysuria urgency or frequency hematuria no history of kidney stones. No abdominal pain no vomiting no diarrhea no flulike symptoms. Associated symptoms: Deny abdominal pain, chills, dysuria, fever(s) or urinary urgency Related Data Home Medications ?Medication ?Instructions ?Recorded ?Confirmed hydrochlorothiazide 12.5 mg tablet 12.5 mg PO DAILY 12/23/19 01/31/24 Fish Oil 1 cap PO EVERY OTHER DAY 11/20/20 01/31/24 Vitamin D3 1 cap PO EVERY OTHER DAY 11/20/20 01/31/24 ascorbic acid (vitamin C) 500 mg 500 mg PO EVERY OTHER DAY 11/20/20 01/31/24 tablet (Vitamin C) coconut oil (bulk) See Rx Instructions .Route .COMPLEX 11/20/20 01/31/24 garlic 1 cap PO EVERY OTHER DAY 11/20/20 01/31/24 psyllium seed (with dextrose) oral See Rx Instructions .Route .COMPLEX 11/20/20 01/31/24 powder (fiber) vitamin E 1 cap PO EVERY OTHER DAY 11/20/20 01/31/24 zinc 1 cap PO EVERY OTHER DAY 11/20/20 01/31/24 aspirin 81 mg chewable tablet 81 mg PO DAILY 05/18/21 01/31/24 fluticasone propionate 50 1 spray intranasal DAILY 12/13/23 01/31/24 mcg/actuation nasal spray,suspension cyclobenzaprine 10 mg tablet 10 mg PO TID PRN muscle spasms 01/16/24 01/31/24 Previous Rx's ?Medication ?Instructions ?Recorded diclofenac sodium 75 mg 75 mg PO Q12H PRN pain #20 tabs 02/24/25 tablet,delayed release methylprednisolone 4 mg tablets in See Rx Instructions PO .COMPLEX 05/20/24 a dose pack (Medrol (Hardik)) #21 ea tizanidine 4 mg tablet 4 mg PO Q6H PRN muscle spasticity 05/20/24 #20 tabs Allergies Allergy/AdvReac Type Severity Reaction Status Date / Time No Known Allergies Allergy Verified 01/31/24 13:41 Review of Systems Const: Denies: fever(s) or chills Card: Denies: chest pain Resp: Denies: dyspnea GI: Denies: abdominal pain : Denies: dysuria, urinary frequency or urinary urgency Musc: Reports: back pain; Denies: neck pain Skin/Breast: Denies: rash PFSH ED PFSH: Social History Smoking and tobacco/nicotine status: never used tobacco/nicotine Alcohol intake: never Substance/Drug Use: never Physical Exam Const: COMMON NORMALS: no acute distress GENERAL APPEARANCE: cooperative and comfortable ORIENTATION/CONSCIOUSNESS: Yes awake, Yes oriented to person, Yes oriented to place and Yes oriented to time HENMT: COMMON NORMALS: normocephalic, atraumatic and hearing grossly normal bilaterally HEAD & SCALP: normocephalic and atraumatic Resp: COMMON NORMALS: normal respiratory effort, No retractions, No use of accessory muscles and clear to auscultation bilaterally AUSCULTATION: clear to auscultation bilaterally Cardio: COMMON NORMALS: regular rate, regular rhythm and No murmurs present (Cardio) RATE: regular rate RHYTHM: regular rhythm GI: COMMON NORMALS: Soft to palpation and No hepatosplenomegaly present AUSCULTATION: Yes normoactive bowel sounds PALPATION: Yes Soft to palpation, No Tenderness to palpation present (GI), No Guarding due to palpation present (GI) and Yes No hepatosplenomegaly present Extremity: COMMON NORMALS: normal to inspection, capillary refill normal, no clubbing, cyanosis or edema, no calf tenderness and no pedal edema Neuro: SENSORIUM/ORIENTATION: Yes oriented to person, Yes oriented to place and Yes oriented to time Skin: COMMON NORMALS: no rashes or lesions noted GENERAL SKIN EXAM: no rashes or lesions noted Course Vital Signs: Vital signs: Vital Signs Temperature 97.8 F 05/20/24 05:27 Pulse Rate 71 05/20/24 05:27 Respiratory Rate 16 05/20/24 05:27 Blood Pressure 110/80 05/20/24 05:27 Pulse Oximetry 96 05/20/24 05:27 Oxygen Delivery Me thod Room Air 05/20/24 05:27 MDM - Back Pain/Injury Medical Decision Making Musculoskeletal low back pain exam unremarkable improved with medications given at the emergency room. Will discharge patient home with diclofenac tizanidine steroid taper follow-up with primary care Medical Records I reviewed the patient's medical records. No radiology studies performed this visit Discharge Plan Discharge Patient Disposition: Home Clinical Impression: Strain of lumbar region Condition: Stable Prescriptions: New tizanidine 4 mg tablet 4 mg PO Q6H PRN (Reason: muscle spasticity) Qty: 20 0RF Rx Instructions: do not exceed 3 doses per 24 hrs diclofenac sodium 75 mg tablet,delayed release (DR/EC) 75 mg PO Q12H PRN (Reason: pain) Qty: 20 0RF methylprednisolone [Medrol (Hardik)] 4 mg tablets,dose pack See Rx Instructions .ROUTE .COMPLEX Qty: 21 0RF Rx Instructions: orally per package directions No Action aspirin 81 mg tablet,chewable 81 mg PO DAILY hydrochlorothiazide 12.5 mg tablet 12.5 mg PO DAILY fluticasone propionate 50 mcg/actuation spray,suspension 1 spray intranasal DAILY ascorbic acid (vitamin C) [Vitamin C] 500 mg Tablet 500 mg PO EVERY OTHER DAY coconut oil (bulk) Oil See Rx Instructions .ROUTE .COMPLEX Rx Instructions: one tablespoonful po qam fiber Powder See Rx Instructions .ROUTE .COMPLEX Rx Instructions: one tablespoonful po qam Fish Oil 1 cap PO EVERY OTHER DAY Vitamin D3 1 cap PO EVERY OTHER DAY garlic 1 cap PO EVERY OTHER DAY vitamin E 1 cap PO EVERY OTHER DAY zinc 1 cap PO EVERY OTHER DAY cyclobenzaprine 10 mg tablet 10 mg PO TID PRN (Reason: muscle spasms) Discharge Orders: Discharge ED (Routine); Ordered 05/20/24 Ordered By: Jason Rosas Referrals: Sandee Fair DO [Primary Care Provider] - Discharge Diet: Usual diet Discharge Activity: Increase activity as tolerated Patient Instructions: Back Pain (ED), Opioid Safety, Pain Management Activity Restrictions/Additional Instructions: Thank you for choosing [facility] for your healthcare needs today. It is very important that you follow up as instructed or that you return to the Emergency Department should you have concerns or if your condition changes or worsens in any way. 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
[2024-05-20 06:32] VITALS: BP 123/62; PULSE 60; O2SAT 97
== END 2024-05-20 06:30 | disposition home or self-care (01) ==
PROVIDERS: Emergency Provider Family Medicine; PCP Family Medicine
DX: S39.012A Strain of muscle, fascia and tendon of lower back, initial encounter (principal); Z79.82 Long term (current) use of aspirin; X58.XXXA Exposure to other specified factors, initial encounter
CPT/HCPCS: 96372; 99284; J1100; J1885; J2360

== ENCOUNTER 2024-05-24 03:28 | Emergency (ER) | payer OTHER, MEDICARE, SELFPAY ==
[2024-05-24 03:38] VITALS: BP 141/88; PULSE 55; RESP 18; TEMP 36.5; O2SAT 95; BMI 29.4
--- NOTE | 2024-05-24 03:58 | W.ED.BACK ---
HPI - Back Pain/Injury General: Chief Complaint: Back Pain/Injury Stated Complaint: low back pain Time Seen by Provider: 05/24/24 03:54 History of Present Illness: 73-year-old man with history of chronic back issues returns emergency room with acute back pain. Says this is worsening. This happens sometimes. He has to go on a long trip today and he was hoping to get some relief. No saddle numbness, no urinary retention or incontinence, no focal motor deficit, no sensory deficit. no recent fever. no cough. no shortness of breath. no chest pain. no abdominal pain. no nausea or vomiting. no dysuria. no altered mental status. no edema. Related Data Home Medications ?Medication ?Instructions ?Recorded ?Confirmed hydrochlorothiazide 12.5 mg tablet 12.5 mg PO DAILY 12/23/19 01/31/24 Fish Oil 1 cap PO EVERY OTHER DAY 11/20/20 01/31/24 Vitamin D3 1 cap PO EVERY OTHER DAY 11/20/20 01/31/24 ascorbic acid (vitamin C) 500 mg 500 mg PO EVERY OTHER DAY 11/20/20 01/31/24 tablet (Vitamin C) coconut oil (bulk) See Rx Instructions .Route .COMPLEX 11/20/20 01/31/24 garlic 1 cap PO EVERY OTHER DAY 11/20/20 01/31/24 psyllium seed (with dextrose) oral See Rx Instructions .Route .COMPLEX 11/20/20 01/31/24 powder (fiber) vitamin E 1 cap PO EVERY OTHER DAY 11/20/20 01/31/24 zinc 1 cap PO EVERY OTHER DAY 11/20/20 01/31/24 aspirin 81 mg chewable tablet 81 mg PO DAILY 05/18/21 01/31/24 fluticasone propionate 50 1 spray intranasal DAILY 12/13/23 01/31/24 mcg/actuation nasal spray,suspension cyclobenzaprine 10 mg tablet 10 mg PO TID PRN muscle spasms 01/16/24 01/31/24 Previous Rx's ?Medication ?Instructions ?Recorded diclofenac sodium 75 mg 75 mg PO Q12H PRN pain #20 tabs 05/20/24 tablet,delayed release methylprednisolone 4 mg tablets in See Rx Instructions PO .COMPLEX 05/20/24 a dose pack (Medrol (Hardik)) #21 ea tizanidine 4 mg tablet 4 mg PO Q6H PRN muscle spasticity 05/20/24 #20 tabs cyclobenzaprine 10 mg tablet 10 mg PO Q8H PRN muscle spasm #20 05/24/24 tabs diclofenac sodium 50 mg 50 mg PO BID PRN pain #14 tabs 05/24/24 tablet,delayed release hydrocodone 5 mg-acetaminophen 325 1 tab PO Q8H PRN pain #14 tabs 05/24/24 mg tablet Allergies Allergy/AdvReac Type Severity Reaction Status Date / Time No Known Allergies Allergy Verified 05/24/24 03:50 Review of Systems Narrative: Constitutional symptoms: Negative except as documented in HPI. Skin symptoms: Negative except as documented in HPI. Eye symptoms: Negative except as documented in HPI. ENMT symptoms: Negative except as documented in HPI. Respiratory symptoms: Negative except as documented in HPI. Cardiovascular symptoms: Negative except as documented in HPI. Gastrointestinal symptoms: Negative except as documented in HPI. Genitourinary symptoms: Negative except as documented in HPI. Musculoskeletal symptoms: Negative except as documented in HPI. Neurologic symptoms: Negative except as documented in HPI. Psychiatric symptoms: Negative except as documented in HPI. Endocrine symptoms: Negative except as documented in HPI. PFSH ED PFSH: Social History Smoking and tobacco/nicotine status: never used tobacco/nicotine Alcohol intake: never Substance/Drug Use: never Physical Exam Narrative: EXAM NARRATIVE: General: Alert, no acute distress. Head: Normocephalic Neck: Trachea midline Eye: Extraocular movements are intact. Ears, nose, mouth and throat: Oral mucosa moist Respiratory: Respirations are non-labored Musculoskeletal: Normal ROM Back: no step off, no focal tenderness, some paraspinal muscle tenderness Neurological: Alert and oriented, No focal neurological deficit observed. Psychiatric: Cooperative, appropriate mood & affect. Course Vital Signs: Vital signs: Vital Signs Temperature 97.7 F 05/24/24 03:38 Pulse Rate 55 L 05/24/24 03:38 Respiratory Rate 18 05/24/24 03:38 Blood Pressure 141/88 05/24/24 03:38 Pulse Oximetry 95 05/24/24 03:38 Oxygen Delivery Me thod Room Air 05/24/24 03:38 MDM - Back Pain/Injury Medical Decision Making Assessment and plan: Acute on chronic back pain ?IM Decadron, IM Norflex and IM Toradol - Discharged home - Discussed plan with patient. Answered any questions. - Evaluation and treatment of this problem were appropriate in the emergency setting. No radiology studies performed this visit Discharge Plan Discharge Patient Disposition: Home Clinical Impression: Lumbar radiculopathy Condition: Stable Prescriptions: New cyclobenzaprine 10 mg tablet 10 mg PO Q8H PRN (Reason: muscle spasm) Qty: 20 0RF hydrocodone-acetaminophen 5-325 mg tablet 1 tab PO Q8H PRN (Reason: pain) Qty: 14 0RF Rx Instructions: Take 1/2 to 1 tab every 8 hours as needed for pain diclofenac sodium 50 mg tablet,delayed release (DR/EC) 50 mg PO BID PRN (Reason: pain) Qty: 14 0RF No Action aspirin 81 mg tablet,chewable 81 mg PO DAILY hydrochlorothiazide 12.5 mg tablet 12.5 mg PO DAILY fluticasone propionate 50 mcg/actuation spray,suspension 1 spray intranasal DAILY ascorbic acid (vitamin C) [Vitamin C] 500 mg Tablet 500 mg PO EVERY OTHER DAY coconut oil (bulk) Oil See Rx Instructions .ROUTE .COMPLEX Rx Instructions: one tablespoonful po qam fiber Powder See Rx Instructions .ROUTE .COMPLEX Rx Instructions: one tablespoonful po qam Fish Oil 1 cap PO EVERY OTHER DAY Vitamin D3 1 cap PO EVERY OTHER DAY garlic 1 cap PO EVERY OTHER DAY vitamin E 1 cap PO EVERY OTHER DAY zinc 1 cap PO EVERY OTHER DAY cyclobenzaprine 10 mg tablet 10 mg PO TID PRN (Reason: muscle spasms) tizanidine 4 mg tablet 4 mg PO Q6H PRN (Reason: muscle spasticity) Qty: 20 0RF Rx Instructions: do not exceed 3 doses per 24 hrs diclofenac sodium 75 mg tablet,delayed release (DR/EC) 75 mg PO Q12H PRN (Reason: pain) Qty: 20 0RF methylprednisolone [Medrol (Hardik)] 4 mg tablets,dose pack See Rx Instructions .ROUTE .COMPLEX Qty: 21 0RF Rx Instructions: orally per package directions Discharge Orders: Discharge ED (Routine); Ordered 05/24/24 Ordered By: Sujey Amaya Referrals: Sandee Fair DO [Primary Care Provider] - Discharge Diet: Usual diet Discharge Activity: Increase activity as tolerated Patient Instructions: Lumbar Radiculopathy (ED), Opioid Safety, Pain Management Activity Restrictions/Additional Instructions: Thank you for choosing [facility] for your healthcare needs today. Please realize this is an emergency room and that we are providing you with a medical screening exam and this may not be complete and all inclusive of all the testing and or work up that you may need to determine your ailment or severity of your illness. You have been screened and evaluated and felt safe for discharge. Health conditions do change or evolve sometimes and as such it is important that you follow up with your Primary Doctor to be re checked, 3-5 days is a general good time frame for follow up. 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
[2024-05-24] MEDS: ketorolac 30 mg/mL INJ IM (04:13)
[2024-05-24] MEDS: orphenadrine 30 mg/mL Inj 2 mL 60 MG IM (04:13)
[2024-05-24] MEDS: dexamethasone 10 mg/mL INJ IM (04:13)
[2024-05-24 04:50] VITALS: BP 141/88; PULSE 53; O2SAT 94
== END 2024-05-24 04:52 | disposition home or self-care (01) ==
PROVIDERS: Emergency Provider Emergency Medicine; PCP Family Medicine
DX: M54.16 Radiculopathy, lumbar region (principal); Z79.82 Long term (current) use of aspirin
CPT/HCPCS: 96372; 99284; J1100; J1885; J2360

== ENCOUNTER → 2024-07-16 08:03 | Outpatient (BNVA) | payer OTHER, SELFPAY | PROVIDERS: PCP Family Medicine; Visit Provider Nurse Practitioner Family | DX: L23.9 Allergic contact dermatitis, unspecified cause (principal); L01.01 Non-bullous impetigo; L21.8 Other seborrheic dermatitis; L81.4 Other melanin hyperpigmentation; L57.8 Other skin changes due to chronic exposure to nonionizing radiation; L57.0 Actinic keratosis; X32.XXXA Exposure to sunlight, initial encounter | CPT/HCPCS: 17000; 99214 ==

== ENCOUNTER → 2024-08-01 07:49 | Outpatient (BNVA) | payer OTHER, SELFPAY | PROVIDERS: PCP Family Medicine; Visit Provider Nurse Practitioner Family | DX: L23.9 Allergic contact dermatitis, unspecified cause (principal); L01.01 Non-bullous impetigo | CPT/HCPCS: 99214 ==

== ENCOUNTER → 2024-12-18 09:18 | Outpatient (BNVA) | payer OTHER, SELFPAY | PROVIDERS: PCP Family Medicine; Visit Provider Specialist | DX: M17.11 Unilateral primary osteoarthritis, right knee (principal) | CPT/HCPCS: 73560; 73565; 99214 ==

== ENCOUNTER 2025-01-06 08:44 | Outpatient (CLI) | payer OTHER, SELFPAY ==
--- NOTE | 2025-01-06 08:45 | MR_ITS ---
WS: [id number] MRI RIGHT KNEE NONCONTRAST TECHNIQUE: Axial PD, coronal PD fat sat, coronal PD, sagittal PD, and sagittal PD fat-sat images obtained. CLINICAL INFORMATION: right knee pain COMPARISON: None. 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 Distal quadriceps and patella tendons appear intact. ACL and PCL appear intact. Small to moderate suprapatellar effusion. Grade III chondromalacia patella. Lobulated popliteal cyst measuring 0.7 x 2.0 x 3.4 cm AP by transverse by craniocaudal. No acute appearing meniscal tears. Chronic thinning of the medial and lateral meniscus. Medial and lateral collateral ligaments appear intact. Normal bone marrow signal in the femoral condyles and tibial plateau. No other acute findings. MR/MR knee RT wo con* [id number] IMPRESSION: 1. 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 2. ACL and PCL appear intact. 3. No acute appearing meniscal tears. Chronic thinning of the medial lateral m eniscus. 4. Small to moderate suprapatellar effusion. 5. Lobulated popliteal cyst measuring 0.7 x 2.0 x 3.4 cm AP by transverse by c raniocaudal. Outbridge grading: grade III: partial-thickness cartilage loss with focal ulcer ation
== END 2025-01-06 08:45 | disposition home or self-care (01) ==
LOC: RAD 08:45
PROVIDERS: PCP Family Medicine; Visit Provider Specialist
DX: M17.11 Unilateral primary osteoarthritis, right knee (principal); M22.41 Chondromalacia patellae, right knee; M71.21 Synovial cyst of popliteal space [Baker], right knee; M23.300 Other meniscus derangements, unspecified lateral meniscus, right knee
CPT/HCPCS: 73721